=== PATIENT | female | born 1945 | race Caucasian/White ===

== ENCOUNTER 2018-06-24 18:25 | Inpatient (IN) | payer MEDICARE, BC ==
[2018-06-24] MEDS ORDERED: Sodium Chloride 0.9% 10 ML Syringe FLUSH PRN (18:30)
[2018-06-24] MEDS ORDERED: Sodium Chloride 0.9% 1,000 ML IV SCH ×2 (18:30→19:45)
--- NOTE | 2018-06-24 18:33 | EDM.PDOC ---
<Matty Sarmiento - Last Filed: 06/24/18 19:33> ED HPI GENERAL MEDICAL PROBLEM - General Chief Complaint: Trauma Stated Complaint: [facility] Time Seen by Provider: 06/24/18 18:28 Source of Information: Reports: EMS, RN Notes Reviewed - History of Present Illness INITIAL COMMENTS - FREE TEXT/NARRATIVE: 72-year-old female was brought in by EMS having been found lying on her bathroom floor. She was last known to be well 3 days ago when her brother last checked on her. She states she lost her balance, fell getting either to or from the bathroom. She feels quite strongly this happened Tuesday 3 days ago. When her brother went to check on her not having heard from her for 3 days found her lying face down on the bathroom floor unable to get up. Apparently she does have a Lifeline but "does not use it". He used to check on her daily or every other day but she protested with that so now the checks are "more random". Speech was noted to be somewhat slurred by EMS but there was no focal weakness. She had been incontinent of urine. She denies chest pain on arrival to ED, she feels mildly short of breath. She would not of had opportunity to take her medication for the last 3 days as well. She feels like her right arm is heavy and somewhat hard to move. She denies pain or injury to upper or lower extremities. - Related Data Allergies Allergy/AdvReac Type Severity Reaction Status Date / Time No Known Allergies Allergy Verified 06/24/18 19:53 Home Meds: Home Meds Albuterol [Ventolin HFA] 2 puff INH ONCALL PRN 06/24/18 [History] Omeprazole 20 mg PO DAILY 06/24/18 [History] Spironolactone 50 mg PO BID 06/24/18 [History] hydroCHLOROthiazide [Hydrochlorothiazide] 25 mg PO BID 06/24/18 [History] predniSONE [Prednisone] 5 mg PO DAILY 06/24/18 [History] ED ROS GENERAL - Review of Systems Review Of Systems: See Below Constitutional: Denies: Fever, Chills HEENT: Reports: Other. Denies: Throat Pain Respiratory: Reports: Shortness of Breath (Mouth feels very dry). Denies: Cough Cardiovascular: Denies: Chest Pain GI/Abdominal: Denies: Abdominal Pain, Nausea, Vomiting Musculoskeletal: Reports: Arm Pain (Right arm "feels heavy"). Denies: Leg Pain Skin: Reports: Bruising (There is some bruising and there are some superficial abrasions and swelling of her right head and face) Neurological: Reports: Weakness (Generalized, no focal weakness). Denies: Headache, Trouble Speaking ED EXAM, DIZZINESS - Physical Exam Exam: See Below General Appearance: Alert, Other (Mildly drowsy but very arousable, answers questions, obeys commands) Eye Exam: Bilateral Eye: PERRL, Other (Appears to have mild scleral icterus) Ears: Normal External Exam Nose: Normal Inspection Throat/Mouth: Other (Oral mucosa very dry) Head Exam: Facial Swelling (Mild right facial, forehead and periorbital swelling ) Neck: Non-Tender Respiratory/Chest: No Respiratory Distress, Lungs Clear, Normal Breath Sounds Cardiovascular: Regular Rate, Rhythm GI/Abdominal: Soft, Non-Tender Neurological: Alert, No Motor/Sensory Deficits Extremities: Pedal Edema (Marketed bilateral edema both lower legs), Redness ( Bilateral lower extremities). No: Joint Swelling, Leg Pain (No joint tenderness upper or lower extremities) Skin Exam: Dry, Pallor Course - Vital Signs Last Recorded V/S: Last Vital Signs Temp 36.1 C 06/24/18 18:39 Pulse 73 06/24/18 18:39 Resp 19 06/24/18 18:39 BP 149/81 H 06/24/18 18:39 Pulse Ox 88 L 06/24/18 18:39 - Orders/Labs/Meds Orders: Active Orders 24 hr Category Date Time Status EKG 12 Lead [EKG Documentation Completion] [RC] STAT Care 06/24/18 18:29 Active Peripheral IV Care [RC] . DIRECTED Care 06/24/18 18:30 Active Chest 1V Frontal [CR] Stat Exams 06/24/18 19:20 Taken Pelvis 1V or 2V [CR] Stat Exams 06/24/18 19:19 Taken CULTURE URINE [RM] Stat Lab 06/24/18 20:05 Received Lactated Ringers [Ringers, Lactated] 1,000 ml Med 06/24/18 21:45 Active IV ASDIRECTED Sodium Chloride 0.9% [Normal Saline] 1,000 ml Med 06/24/18 18:30 Active IV ONETIME Sodium Chloride 0.9% [Normal Saline] 1,000 ml Med 06/24/18 19:45 Active IV ONETIME Sodium Chloride 0.9% [Saline Flush] Med 06/24/18 18:30 Active 10 ml FLUSH ASDIRECTED PRN Peripheral IV Insertion Adult [OM.PC] Stat Oth 06/24/18 18:29 Ordered Medication Orders Sodium Chloride (Normal Saline) 1,000 mls @ 999 mls/hr IV ONETIME TEODORO Last Admin: 06/24/18 18:42 Dose: 999 mls/hr Sodium Chloride (Normal Saline) 1,000 mls @ 999 mls/hr IV ONETIME TEODORO Last Admin: 06/24/18 19:48 Dose: 999 mls/hr Lactated Ringer's (Ringers, Lactated) 1,000 mls @ 250 mls/hr IV ASDIRECTED TEODORO Last Admin: 06/24/18 21:50 Dose: 250 mls/hr Sodium Chloride (Saline Flush) 10 ml FLUSH ASDIRECTED PRN PRN Reason: Keep Vein Open Last Admin: 06/24/18 18:43 Dose: 10 ml Labs: Laboratory Tests 06/24/18 06/24/18 06/24/18 Range/Units 18:50 18:50 18:50 WBC 7.18 (3.98-10.04) K/mm3 RBC 2.24 L (3.98-5.22) M/mm3 Hgb 9.0 L (11.2-15.7) gm/L Hct 27.2 L (34.1-44.9) % MCV 121.4 H (79.4-94.8) fl MCH 40.2 H (25.6-32.2) pg MCHC 33.1 (32.2-35.5) g/dl RDW Std Deviation 83.1 H (36.4-46.3) fL Plt Count 173 L (182-369) K/mm3 MPV 10.1 (9.4-12.3) fl Neutrophils % (Manual) 80 H (40-60) % Band Neutrophils % 1 (0-10) % Lymphocytes % (Manual) 8 L (20-40) % Atypical Lymphs % 0 % Monocytes % (Manual) 7 (2-10) % Eosinophils % (Manual) 4 (0.7-5.8) % Basophils % (Manual) 0 L (0.1-1.2) Platelet Estimate Adequate Poikilocytosis 1+ slight Anisocytosis 2+ moderate Macrocytosis 2+ moderate Ovalocytes 1+ slight Sodium 135 L (136-145) mEq/L Potassium 3.9 (3.5-5.1) mEq/L Chloride 102 (98-107) mEq/L Carbon Dioxide 25 (21-32) mEq/L Anion Gap 11.9 (5-15) BUN 52 H (7-18) mg/dL Creatinine 2.8 H (0.55-1.02) mg/dL Est Cr Clr Drug Dosing 16.58 mL/min Estimated GFR (MDRD) 17 (>60) mL/min BUN/Creatinine Ratio 18.6 H (14-18) Glucose 111 (83-115) mg/dL Lactic Acid 2.8 H (0.4-2.0) mmol/L Calcium 8.2 L (8.5-10.1) mg/dL Magnesium (1.8-2.4) mg/dl Total Bilirubin 5.6 H (0.2-1.0) mg/dL AST 53 H (15-37) U/L ALT 17 (14-59) U/L Alkaline Phosphatase 95 (46-116) U/L Ammonia (11-32) umol/L Creatine Kinase 111 (26-192) U/L Troponin I < 0.017 (0.00-0.056) ng/mL C-Reactive Protein 11.6 H* (<1.0) mg/dL Total Protein 5.9 L (6.4-8.2) g/dl Albumin 1.6 L (3.4-5.0) g/dl Globulin 4.3 gm/dL Albumin/Globulin Ratio 0.4 L (1-2) Urine Color (Yellow) Urine Appearance (Clear) Urine pH (5.0-8.0) Ur Specific [place] (1.005-1.030) Urine Protein (Negative) Urine Glucose (UA) (Negative) Urine Ketones (Negative) Urine Occult Blood (Negative) Urine Nitrite (Negative) Urine Bilirubin (Negative) Urine Urobilinogen (0.2-1.0) Ur Leukocyte Esterase (Negative) Urine RBC (0-5) /hpf Urine WBC (0-5) /hpf Ur Epithelial Cells Ur Squamous Epith Cells (0-5) /hpf Urine Bacteria (FEW) /hpf Hyaline Casts (0-5) /lpf Urine Mucus (FEW) /hpf 06/24/18 06/24/18 06/24/18 Range/Units 18:50 20:05 23:30 WBC (3.98-10.04) K/mm3 RBC (3.98-5.22) M/mm3 Hgb (11.2-15.7) gm/L Hct (34.1-44.9) % MCV (79.4-94.8) fl MCH (25.6-32.2) pg MCHC (32.2-35.5) g/dl RDW Std Deviation (36.4-46.3) fL Plt Count (182-369) K/mm3 MPV (9.4-12.3) fl Neutrophils % (Manual) (40-60) % Band Neutrophils % (0-10) % Lymphocytes % (Manual) (20-40) % Atypical Lymphs % % Monocytes % (Manual) (2-10) % Eosinophils % (Manual) (0.7-5.8) % Basophils % (Manual) (0.1-1.2) Platelet Estimate Poikilocytosis Anisocytosis Macrocytosis Ovalocytes Sodium (136-145) mEq/L Potassium (3.5-5.1) mEq/L Chloride (98-107) mEq/L Carbon Dioxide (21-32) mEq/L Anion Gap (5-15) BUN (7-18) mg/dL Creatinine (0.55-1.02) mg/dL Est Cr Clr Drug Dosing mL/min Estimated GFR (MDRD) (>60) mL/min BUN/Creatinine Ratio (14-18) Glucose (83-115) mg/dL Lactic Acid (0.4-2.0) mmol/L Calcium (8.5-10.1) mg/dL Magnesium 1.7 L (1.8-2.4) mg/dl Total Bilirubin (0.2-1.0) mg/dL AST (15-37) U/L ALT (14-59) U/L Alkaline Phosphatase (46-116) U/L Ammonia 21 (11-32) umol/L Creatine Kinase (26-192) U/L Troponin I (0.00-0.056) ng/mL C-Reactive Protein (<1.0) mg/dL Total Protein (6.4-8.2) g/dl Albumin (3.4-5.0) g/dl Globulin gm/dL Albumin/Globulin Ratio (1-2) Urine Color Brown H (Yellow) Urine Appearance Slt cloudy H (Clear) Urine pH 5.0 (5.0-8.0) Ur Specific [place] > or = 1.030 (1.005-1.030) Urine Protein 2+ H (Negative) Urine Glucose (UA) Negative (Negative) Urine Ketones Trace H (Negative) Urine Occult Blood 2+ H (Negative) Urine Nitrite Positive H (Negative) Urine Bilirubin 2+ H (Negative) Urine Urobilinogen 1.0 (0.2-1.0) Ur Leukocyte Esterase Negative (Negative) Urine RBC 0-5 (0-5) /hpf Urine WBC 0-5 (0-5) /hpf Ur Epithelial Cells Not Reportable Ur Squamous Epith Cells 0-5 (0-5) /hpf Urine Bacteria Few (FEW) /hpf Hyaline Casts 5-10 H (0-5) /lpf Urine Mucus Few (FEW) /hpf Meds: Medications Generic Name Dose Route Start Last Admin Trade Name Freq PRN Reason Stop Dose Admin Sodium Chloride 1,000 mls @ 999 mls/hr 06/24/18 18:30 06/24/18 18:42 Normal Saline IV 999 mls/hr ONETIME TEODORO Administration Sodium Chloride 1,000 mls @ 999 mls/hr 06/24/18 19:45 06/24/18 19:48 Normal Saline IV 999 mls/hr ONETIME TEODORO Administration Lactated Ringer's 1,000 mls @ 250 mls/hr 06/24/18 21:45 06/24/18 21:50 Ringers, Lactated IV 250 mls/hr ASDIRECTED TEODORO Administration Sodium Chloride 10 ml 06/24/18 18:30 06/24/18 18:43 Saline Flush FLUSH 10 ml ASDIRECTED PRN Administration Keep Vein Open - Re-Assessments/Exams Free Text/Narrative Re-Assessment/Exam: 06/24/18 19:30. change of shift, labs, head Ct looks good. X rays pending. Have ordered initial 1 liter fluid bolus, will get a 2nd liter ordered to start as soon as the first is finished. Departure - Departure Disposition: Admitted As Inpatient 67 Clinical Impression: Fall at home, Alteration in self-care ability, Acute renal failure - Discharge Information Referrals: PCP,None [Primary Care Provider] - - My Orders Last 24 Hours: My Active Orders 06/24/18 20:05 CULTURE URINE [RM] Stat 06/24/18 21:45 Lactated Ringers [Ringers, Lactated] 1,000 ml IV ASDIRECTED - Assessment/Plan Last 24 Hours: My Active Orders 06/24/18 20:05 CULTURE URINE [RM] Stat 06/24/18 21:45 Lactated Ringers [Ringers, Lactated] 1,000 ml IV ASDIRECTED <Kadeem Coleman - Last Filed: 06/25/18 00:42> Past Medical History Cardiovascular History: Reports: Hypertension Respiratory History: Reports: Asthma (suspected, never tested) Gastrointestinal History: Reports: Cirrhosis Psychiatric History: Reports: Depression (untreated) Endocrine/Metabolic History: Reports: Obesity/BMI 30+ - Past Surgical History HEENT Surgical History: Reports: Adenoidectomy, Tonsillectomy Female Surgical History: Reports: Hysterectomy (complete), Salpingo- Oophorectomy (bilateral) Social & Family History - Tobacco Use Smoking Status *Q: Former Smoker Years of Tobacco use: 30 Packs/Tins Daily: 2 Month/Year Tobacco Last Used: Quit 1999 - Alcohol Use Alcohol Use History: No - Recreational Drug Use Recreational Drug Use: No - Living Situation & Occupation Living situation: Reports: Single, Alone Occupation: Unemployed EKG INTERPRETATION EKG Date: 06/24/18 Time: 18:41 Rhythm: NSR Rate (Beats/Min): 72 [place]: Normal P-Wave: Present QRS: Normal (Early transition) ST-T: Normal QT: Normal Comparison: NA - No Prior EKG Course - Re-Assessments/Exams Free Text/Narrative Re-Assessment/Exam: 06/24/18 20:30 CT of the head without contrast is read by Dr. Marvin as: 1. Slight senescent change as noted above. No acute intracranial abnormality is appreciated. Portable chest radiograph reviewed. There is likely cardiomegaly. No pulmonary vascular congestion. No pleural effusions, however, there is fluid seen in the horizontal fissure. This could be due to atelectasis. No focal infiltrate. No pneumothorax. Formal read per the Radiologist pending. Single view radiographs of the pelvis appears to be grossly normal. No fracture or dislocation identified. Formal read per the Radiologist pending. 06/24/18 20:59 The patient's CBC is remarkable for a H/H of 9.0/27.2, but is otherwise unremarkable. There are no prior labs to compare. The patient's CMP is remarkable for a BUN/Cr of 52/2.8. No prior labs to determine if this is acute or chronic. The remainder of her CMP is unremarkable. The patient's magnesium level is slightly depressed at 1.7. The patient's lactic acid level is elevated at 2.8, however, the patient's bicarbonate is normal at 25, indicating that this is hyper like team you, not lactic acidosis. The patient's CRP is elevated at 11.6. The patient's CPK is within normal limits at 111. She does not have rhabdomyolysis. The patient's troponin is undetectable he low. The patient's urinalysis is remarkable for nitrite positive and few bacteria, but leukocyte esterase negative and no WBCs and no bacteria. I have ordered a urine culture, but empiric antibiotics are not indicated. I'm going to recommend admission to the hospital for IV fluid and penitentiary placement. 06/24/18 23:20 The patient is quite confused and has difficulty giving me her past medical history, however, she mentioned that she has a history of non-alcoholic cirrhosis, diagnosed around 1999. Because the patient has not taken any of her medications over the past few days, there is the possibility that the patient's confusion could be due to hepatic encephalopathy, therefore I have ordered an ammonia level. 06/25/18 00:33 The patient's ammonia level is 21 = not significantly elevated. 06/25/18 00:[address] Montanez at 00:34. She excepted the patient for full admission to the Med/Surg unit. Departure - Departure Time of Disposition: 00:38 Condition: Fair - Discharge Information *PRESCRIPTION DRUG MONITORING PROGRAM REVIEWED*: Not Applicable *COPY OF PRESCRIPTION DRUG MONITORING REPORT IN PATIENT IVETH: Not Applicable
--- NOTE | 2018-06-24 19:26 | CT ---
Head CT Technique: Multiple axial sections through the brain were obtained. Intravenous contrast was not utilized. Comparison: No previous intracranial imaging is available. Findings: Ventricles along with basal cisterns and sulci over convexities are mildly prominent. No abnormal parenchymal densities are seen. No evidence of intracranial hemorrhage. No midline shift or mass effect is seen. Bone window settings were reviewed which shows no acute calvarial abnormality. Small bony exostosis is incidentally noted off the inner table of the skull within the right frontal region. Visualized sinuses are clear. Impression: 1. Slight senescent change as noted above. No acute intracranial abnormality is appreciated. Diagnostic code #2
[2018-06-24] MEDS ORDERED: Lactated Ringers 1,000 ML IV SCH (21:45)
[2018-06-25] MEDS ORDERED: Lactated Ringers 1,000 ML IV SCH (02:45)
[2018-06-25] MEDS ORDERED: Enoxaparin 30 MG/0.3 ML Syringe SUBCUT ONE (03:00)
--- NOTE | 2018-06-25 09:26 | PCM.HP ---
H&P History of Present Illness - General Date of Service: 06/25/18 Admit Problem/Dx: Admission Diagnosis/Problem Admission Diagnosis/Problem Fall in home Source of Information: Patient, Provider - History of Present Illness Initial Comments - Free Text/Narative: 72 year old female with PMH of liver disease, possibly hypertension presented as a possible CVA. The patient moved to [place] from [place] for family support. She reports a history of autoimmune hepatitis and stated that her provider was Dr. Harvey Garcia, a GI physician. She was formerly seen by Dr. Almas Back who was her PCP, he has retired. Lastly she has been seen in [place] by a supervisor hand silvering. The patient reported that she fell and could not get up. There is a life alert that was not used. Her brother checked on her, and notified EMS when she was apparently found on the floor in the bathroom. The patient believes that she was on the floor for three days. She denies chest pain, shortness of breath, palpitations; she stated that she got on the floor because she could not get off of the commode. There was no LOC. The patient was incontinent of urine. The patient reports multiple meds used for liver disease, this will be clarified. She is a full code. There is no current PCP in [place] or [place]. Onset of Symptoms: Reports: Unknown/Unsure Symptom Onset Date: 06/21/18 Duration of Symptoms: Reports: Day(s):, Getting Worse Location: Reports: Generalized Severity: Moderate Improves with: Reports: Medication Worsens with: Reports: None Context: Reports: Other (use of commode) Associated Symptoms: Reports: Loss of Appetite, Weakness - Related Data Allergies/Adverse Reactions: Allergies Allergy/AdvReac Type Severity Reaction Status Date / Time No Known Allergies Allergy Verified 06/25/18 10:48 Home Medications: Home Meds Albuterol [Ventolin HFA] 2 puff INH ONCALL PRN 06/24/18 [History] Omeprazole 20 mg PO DAILY 06/24/18 [History] Spironolactone 50 mg PO BID 06/24/18 [History] hydroCHLOROthiazide [Hydrochlorothiazide] 25 mg PO BID 06/24/18 [History] predniSONE [Prednisone] 5 mg PO DAILY 06/24/18 [History] Diltiazem HCl [Cardizem] 5 mg PO DAILY 06/25/18 [History] Omeprazole Magnesium [Prilosec Otc] 20 mg PO DAILY 06/25/18 [History] Past Medical History HEENT History: Reports: Impaired Vision Cardiovascular History: Reports: Hypertension Respiratory History: Reports: Asthma (suspected, never tested) Gastrointestinal History: Reports: Cirrhosis Psychiatric History: Reports: Depression (untreated) Endocrine/Metabolic History: Reports: Obesity/BMI 30+ - Past Surgical History HEENT Surgical History: Reports: Adenoidectomy, Tonsillectomy Female Surgical History: Reports: Hysterectomy (complete), Salpingo- Oophorectomy (bilateral) Social & Family History - Tobacco Use Smoking Status *Q: Former Smoker Years of Tobacco use: 30 Packs/Tins Daily: 2 Used Tobacco, but Quit: Yes Month/Year Tobacco Last Used: Quit 1999 - Caffeine Use Caffeine Use: Reports: Coffee - Recreational Drug Use Recreational Drug Use: No - Living Situation & Occupation Living situation: Reports: Single, Alone Occupation: Unemployed H&P Review of Systems - Review of Systems: Review Of Systems: See Below General: Reports: Malaise, Weakness HEENT: Reports: No Symptoms Pulmonary: Reports: No Symptoms Cardiovascular: Reports: No Symptoms Gastrointestinal: Reports: No Symptoms Genitourinary: Reports: No Symptoms Musculoskeletal: Reports: No Symptoms Skin: Reports: No Symptoms Psychiatric: Reports: Confusion Neurological: Reports: Difficulty Walking Immunologic: Reports: No Symptoms Exam - Exam Exam: See Below - Vital Signs Vital Signs: Last Vital Signs Temp 36.1 C 06/24/18 18:39 Pulse 73 06/24/18 18:39 Resp 19 06/24/18 18:39 BP 149/81 H 06/24/18 18:39 Pulse Ox 88 L 06/24/18 18:39 Weight: 131.542 kg - Exam Quality Assessment: Supplemental Oxygen, DVT Prophylaxis HEENT: EOMI, Normal Nasal Septum, Pupils Equal, Pupils Reactive Neck: Trachea Midline Lungs: Normal Respiratory Effort Cardiovascular: Regular Rate, Regular Rhythm GI/Abdominal Exam: Normal Bowel Sounds, Soft, Non-Tender, No Distention (Female) Exam: Deferred Rectal (Female) Exam: Deferred Back Exam: Normal Inspection Extremities: Normal Inspection, Pedal Edema, Slow Capillary Refill Skin: Other (discolored yellowish brown with abrasions.) Neurological: Cranial Nerves Intact Neuro Extensive - Mental Status: Alert Neuro Extensive - Motor, Sensory, Reflexes: CN II-XII Intact Psychiatric: Alert - Patient Data Lab Results Last 24 hrs: Laboratory Results - last 24 hr 06/24/18 06/24/18 06/24/18 Range/Units 18:50 18:50 18:50 WBC 7.18 (3.98-10.04) K/mm3 RBC 2.24 L (3.98-5.22) M/mm3 Hgb 9.0 L (11.2-15.7) gm/L Hct 27.2 L (34.1-44.9) % MCV 121.4 H (79.4-94.8) fl MCH 40.2 H (25.6-32.2) pg MCHC 33.1 (32.2-35.5) g/dl RDW Std Deviation 83.1 H (36.4-46.3) fL Plt Count 173 L (182-369) K/mm3 MPV 10.1 (9.4-12.3) fl Neutrophils % (Manual) 80 H (40-60) % Band Neutrophils % 1 (0-10) % Lymphocytes % (Manual) 8 L (20-40) % Atypical Lymphs % 0 % Monocytes % (Manual) 7 (2-10) % Eosinophils % (Manual) 4 (0.7-5.8) % Basophils % (Manual) 0 L (0.1-1.2) Platelet Estimate Adequate Polychromasia Hypochromasia Poikilocytosis 1+ slight Anisocytosis 2+ moderate Microcytosis Macrocytosis 2+ moderate Ovalocytes 1+ slight RBC Morph Comment Sodium 135 L (136-145) mEq/L Potassium 3.9 (3.5-5.1) mEq/L Chloride 102 (98-107) mEq/L Carbon Dioxide 25 (21-32) mEq/L Anion Gap 11.9 (5-15) BUN 52 H (7-18) mg/dL Creatinine 2.8 H (0.55-1.02) mg/dL Est Cr Clr Drug Dosing 16.58 mL/min Estimated GFR (MDRD) 17 (>60) mL/min BUN/Creatinine Ratio 18.6 H (14-18) Glucose 111 (83-115) mg/dL Lactic Acid 2.8 H (0.4-2.0) mmol/L Calcium 8.2 L (8.5-10.1) mg/dL Magnesium (1.8-2.4) mg/dl Total Bilirubin 5.6 H (0.2-1.0) mg/dL AST 53 H (15-37) U/L ALT 17 (14-59) U/L Alkaline Phosphatase 95 (46-116) U/L Ammonia (11-32) umol/L Creatine Kinase 111 (26-192) U/L Troponin I < 0.017 (0.00-0.056) ng/mL C-Reactive Protein 11.6 H* (<1.0) mg/dL Total Protein 5.9 L (6.4-8.2) g/dl Albumin 1.6 L (3.4-5.0) g/dl Globulin 4.3 gm/dL Albumin/Globulin Ratio 0.4 L (1-2) Urine Color (Yellow) Urine Appearance (Clear) Urine pH (5.0-8.0) Ur Specific [place] (1.005-1.030) Urine Protein (Negative) Urine Glucose (UA) (Negative) Urine Ketones (Negative) Urine Occult Blood (Negative) Urine Nitrite (Negative) Urine Bilirubin (Negative) Urine Urobilinogen (0.2-1.0) Ur Leukocyte Esterase (Negative) Urine RBC (0-5) /hpf Urine WBC (0-5) /hpf Ur Epithelial Cells Ur Squamous Epith Cells (0-5) /hpf Urine Bacteria (FEW) /hpf Hyaline Casts (0-5) /lpf Urine Mucus (FEW) /hpf Mycoplasma pneumon IgM (NEGATIVE) 06/24/18 06/24/18 06/24/18 Range/Units 18:50 18:50 20:05 WBC (3.98-10.04) K/mm3 RBC (3.98-5.22) M/mm3 Hgb (11.2-15.7) gm/L Hct (34.1-44.9) % MCV (79.4-94.8) fl MCH (25.6-32.2) pg MCHC (32.2-35.5) g/dl RDW Std Deviation (36.4-46.3) fL Plt Count (182-369) K/mm3 MPV (9.4-12.3) fl Neutrophils % (Manual) (40-60) % Band Neutrophils % (0-10) % Lymphocytes % (Manual) (20-40) % Atypical Lymphs % % Monocytes % (Manual) (2-10) % Eosinophils % (Manual) (0.7-5.8) % Basophils % (Manual) (0.1-1.2) Platelet Estimate Polychromasia Hypochromasia Poikilocytosis Anisocytosis Microcytosis Macrocytosis Ovalocytes RBC Morph Comment Sodium (136-145) mEq/L Potassium (3.5-5.1) mEq/L Chloride (98-107) mEq/L Carbon Dioxide (21-32) mEq/L Anion Gap (5-15) BUN (7-18) mg/dL Creatinine (0.55-1.02) mg/dL Est Cr Clr Drug Dosing mL/min Estimated GFR (MDRD) (>60) mL/min BUN/Creatinine Ratio (14-18) Glucose (83-115) mg/dL Lactic Acid (0.4-2.0) mmol/L Calcium (8.5-10.1) mg/dL Magnesium 1.7 L (1.8-2.4) mg/dl Total Bilirubin (0.2-1.0) mg/dL AST (15-37) U/L ALT (14-59) U/L Alkaline Phosphatase (46-116) U/L Ammonia (11-32) umol/L Creatine Kinase (26-192) U/L Troponin I (0.00-0.056) ng/mL C-Reactive Protein (<1.0) mg/dL Total Protein (6.4-8.2) g/dl Albumin (3.4-5.0) g/dl Globulin gm/dL Albumin/Globulin Ratio (1-2) Urine Color Brown H (Yellow) Urine Appearance Slt cloudy H (Clear) Urine pH 5.0 (5.0-8.0) Ur Specific [place] > or = 1.030 (1.005-1.030) Urine Protein 2+ H (Negative) Urine Glucose (UA) Negative (Negative) Urine Ketones Trace H (Negative) Urine Occult Blood 2+ H (Negative) Urine Nitrite Positive H (Negative) Urine Bilirubin 2+ H (Negative) Urine Urobilinogen 1.0 (0.2-1.0) Ur Leukocyte Esterase Negative (Negative) Urine RBC 0-5 (0-5) /hpf Urine WBC 0-5 (0-5) /hpf Ur Epithelial Cells Not Reportable Ur Squamous Epith Cells 0-5 (0-5) /hpf Urine Bacteria Few (FEW) /hpf Hyaline Casts 5-10 H (0-5) /lpf Urine Mucus Few (FEW) /hpf Mycoplasma pneumon IgM Negative (NEGATIVE) 06/24/18 06/25/18 06/25/18 Range/Units 23:30 04:45 04:45 WBC 5.49 (3.98-10.04) K/mm3 RBC 1.97 L (3.98-5.22) M/mm3 Hgb 7.8 L (11.2-15.7) gm/L Hct 24.0 L (34.1-44.9) % MCV 121.8 H (79.4-94.8) fl MCH 39.6 H (25.6-32.2) pg MCHC 32.5 (32.2-35.5) g/dl RDW Std Deviation 84.1 H (36.4-46.3) fL Plt Count 124 L (182-369) K/mm3 MPV 9.6 (9.4-12.3) fl Neutrophils % (Manual) 76 H (40-60) % Band Neutrophils % 4 (0-10) % Lymphocytes % (Manual) 8 L (20-40) % Atypical Lymphs % 0 % Monocytes % (Manual) 10 (2-10) % Eosinophils % (Manual) 2 (0.7-5.8) % Basophils % (Manual) 0 L (0.1-1.2) Platelet Estimate Decreased Polychromasia Occasional Hypochromasia 1+ slight Poikilocytosis Anisocytosis 2+ Microcytosis 2+ moderate Macrocytosis 1+ slight Ovalocytes RBC Morph Comment Not Reportable Sodium 136 (136-145) mEq/L Potassium 3.4 L (3.5-5.1) mEq/L Chloride 102 (98-107) mEq/L Carbon Dioxide 25 (21-32) mEq/L Anion Gap 12.4 (5-15) BUN 54 H (7-18) mg/dL Creatinine 2.6 H (0.55-1.02) mg/dL Est Cr Clr Drug Dosing 17.86 mL/min Estimated GFR (MDRD) 18 (>60) mL/min BUN/Creatinine Ratio 20.8 H (14-18) Glucose 82 L (83-115) mg/dL Lactic Acid (0.4-2.0) mmol/L Calcium 7.6 L (8.5-10.1) mg/dL Magnesium 1.6 L (1.8-2.4) mg/dl Total Bilirubin (0.2-1.0) mg/dL AST (15-37) U/L ALT (14-59) U/L Alkaline Phosphatase (46-116) U/L Ammonia 21 (11-32) umol/L Creatine Kinase (26-192) U/L Troponin I 0.020 (0.00-0.056) ng/mL C-Reactive Protein (<1.0) mg/dL Total Protein (6.4-8.2) g/dl Albumin (3.4-5.0) g/dl Globulin gm/dL Albumin/Globulin Ratio (1-2) Urine Color (Yellow) Urine Appearance (Clear) Urine pH (5.0-8.0) Ur Specific [place] (1.005-1.030) Urine Protein (Negative) Urine Glucose (UA) (Negative) Urine Ketones (Negative) Urine Occult Blood (Negative) Urine Nitrite (Negative) Urine Bilirubin (Negative) Urine Urobilinogen (0.2-1.0) Ur Leukocyte Esterase (Negative) Urine RBC (0-5) /hpf Urine WBC (0-5) /hpf Ur Epithelial Cells Ur Squamous Epith Cells (0-5) /hpf Urine Bacteria (FEW) /hpf Hyaline Casts (0-5) /lpf Urine Mucus (FEW) /hpf Mycoplasma pneumon IgM (NEGATIVE) 06/25/18 Range/Units 08:20 WBC (3.98-10.04) K/mm3 RBC (3.98-5.22) M/mm3 Hgb (11.2-15.7) gm/L Hct (34.1-44.9) % MCV (79.4-94.8) fl MCH (25.6-32.2) pg MCHC (32.2-35.5) g/dl RDW Std Deviation (36.4-46.3) fL Plt Count (182-369) K/mm3 MPV (9.4-12.3) fl Neutrophils % (Manual) (40-60) % Band Neutrophils % (0-10) % Lymphocytes % (Manual) (20-40) % Atypical Lymphs % % Monocytes % (Manual) (2-10) % Eosinophils % (Manual) (0.7-5.8) % Basophils % (Manual) (0.1-1.2) Platelet Estimate Polychromasia Hypochromasia Poikilocytosis Anisocytosis Microcytosis Macrocytosis Ovalocytes RBC Morph Comment Sodium (136-145) mEq/L Potassium (3.5-5.1) mEq/L Chloride (98-107) mEq/L Carbon Dioxide (21-32) mEq/L Anion Gap (5-15) BUN (7-18) mg/dL Creatinine (0.55-1.02) mg/dL Est Cr Clr Drug Dosing mL/min Estimated GFR (MDRD) (>60) mL/min BUN/Creatinine Ratio (14-18) Glucose (83-115) mg/dL Lactic Acid 2.3 H (0.4-2.0) mmol/L Calcium (8.5-10.1) mg/dL Magnesium (1.8-2.4) mg/dl Total Bilirubin (0.2-1.0) mg/dL AST (15-37) U/L ALT (14-59) U/L Alkaline Phosphatase (46-116) U/L Ammonia (11-32) umol/L Creatine Kinase (26-192) U/L Troponin I (0.00-0.056) ng/mL C-Reactive Protein (<1.0) mg/dL Total Protein (6.4-8.2) g/dl Albumin (3.4-5.0) g/dl Globulin gm/dL Albumin/Globulin Ratio (1-2) Urine Color (Yellow) Urine Appearance (Clear) Urine pH (5.0-8.0) Ur Specific [place] (1.005-1.030) Urine Protein (Negative) Urine Glucose (UA) (Negative) Urine Ketones (Negative) Urine Occult Blood (Negative) Urine Nitrite (Negative) Urine Bilirubin (Negative) Urine Urobilinogen (0.2-1.0) Ur Leukocyte Esterase (Negative) Urine RBC (0-5) /hpf Urine WBC (0-5) /hpf Ur Epithelial Cells Ur Squamous Epith Cells (0-5) /hpf Urine Bacteria (FEW) /hpf Hyaline Casts (0-5) /lpf Urine Mucus (FEW) /hpf Mycoplasma pneumon IgM (NEGATIVE) Result Diagrams: 06/25/18 04:45 06/25/18 04:45 Calixto Results Last 24 hrs: Microbiology 06/24/18 20:05 Urine Culture - Preliminary Urine, Quick Cath (In-Out) NO GROWTH AFTER 1 DAY 06/25/18 04:00 Influenza Type A Antigen Screen - Final Nasal, Unspecified NEGATIVE INFLUENZA A VIRUS AG Influenza Type B Antigen Screen - Final NEGATIVE INFLUENZA B VIRUS AG - Problem List (1) Hyperbilirubinemia SNOMED Code(s): 79450971 ICD Code: E80.6 - OTHER DISORDERS OF BILIRUBIN METABOLISM Status: Acute Current Visit: Yes (2) Acute renal failure SNOMED Code(s): 22942445 ICD Code: N17.9 - ACUTE KIDNEY FAILURE, UNSPECIFIED Status: Acute Current Visit: Yes (3) Alteration in self-care ability SNOMED Code(s): 200042681 ICD Code: R53.81 - OTHER MALAISE Status: Acute Current Visit: Yes (4) Fall at home SNOMED Code(s): 17152889 ICD Code: W19.XXXA - UNSPECIFIED FALL, INITIAL ENCOUNTER; Y92.009 - UNSP PLACE [facility] Status: Acute Current Visit: Yes (5) Urinary tract infection SNOMED Code(s): 65177720 ICD Code: N39.0 - URINARY TRACT INFECTION, SITE NOT SPECIFIED Status: Acute Current Visit: Yes Problem List Initiated/Reviewed/Updated: Yes Orders Last 24hrs: Active Orders 24 hr Category Date Time Status Patient Status [ADT] Routine ADT 06/25/18 00:53 Active Bedrest Bedside Commode [RC] ASDIRECTED Care 06/25/18 02:42 Active Full Liquid Diet [DIET] Diet 06/25/18 Breakfast Active Chest 1V Frontal [CR] Stat Exams 06/24/18 19:20 Taken Pelvis 1V or 2V [CR] Stat Exams 06/24/18 19:19 Taken CORTISOL [REF] Routine Lab 06/25/18 04:45 Received CULTURE URINE [RM] Stat Lab 06/24/18 20:05 Results RESPIRATORY PANEL Routine Lab 06/25/18 03:44 Received Enoxaparin [Lovenox] Med 06/26/18 09:00 Active 30 mg SUBCUT DAILY Lactated Ringers [Ringers, Lactated] 1,000 ml Med 06/25/18 02:45 Active IV ASDIRECTED Sodium Chloride 0.9% [Saline Flush] Med 06/24/18 18:30 Active 10 ml FLUSH ASDIRECTED PRN Peripheral IV Insertion Adult [OM.PC] Stat Oth 06/24/18 18:29 Ordered Code Status [Resuscitation Status] Routine Resus Stat 06/25/18 02:41 Ordered Medication Orders Enoxaparin Sodium (Lovenox) 30 mg SUBCUT DAILY COUNTS INCLUDE 234 BEDS AT THE [facility] Lactated Ringer's (Ringers, Lactated) 1,000 mls @ 125 mls/hr IV ASDIRECTED TEODORO Last Admin: 06/25/18 04:47 Dose: 125 mls/hr Sodium Chloride (Saline Flush) 10 ml FLUSH ASDIRECTED PRN PRN Reason: Keep Vein Open Last Admin: 06/24/18 18:43 Dose: 10 ml Assessment/Plan Comment:: Impression: Hyperbilirubinemia History of liver disease, autoimmune by self report History of immunosuppressants, clarify meds AUTI ARF/dehydration Failure of self care/self neglect CVA/TIA, doubt Query CHF, diastolic Plan: IVF Home meds after clarified Daily labs Abd US, complete Liver panel, TSH, Cortisol Stress steroid Droplet isolation Resp panel Consult PT/OT/CM DVT/GI prophylaxis
[2018-06-25] MEDS ORDERED: Sodium Chloride 0.9% 1,000 ML IV SCH (10:30)
[2018-06-25] MEDS: cefTRIAXone 2 GM in Sodium Chloride 0.9% 100 ML IV SCH (10:53)
--- NOTE | 2018-06-25 13:07 | CR ---
Chest: Portable view of the chest was obtained. Comparison: No prior chest x-ray is available. Linear densities within the right mid chest are seen. These either represent atelectasis or areas of scarring. Lungs are otherwise clear. Heart is at the upper limits of normal. Tortuous thoracic aorta is seen. Scattered degenerative endplate spurring is noted within the spine. Degenerative change is noted within the right shoulder. Impression: 1. Atelectasis or scarring within the right mid lung. 2. Other incidental findings. Nothing acute is otherwise seen. Diagnostic code #2
--- NOTE | 2018-06-25 13:07 | CR ---
Pelvis: AP view of the pelvis was obtained. Calcification is seen within the pelvis most likely represent calcified uterine fibroid. No discrete fracture or other abnormality is appreciated. Impression: 1. Incidental finding. Nothing acute is definitely appreciated on AP pelvis study. Diagnostic code #2
[2018-06-25] MEDS ORDERED: Hydrocortisone Sodium Succinate 100 MG/2 ML SDV IVPUSH SCH ×2 (14:00)
[2018-06-25] MEDS ORDERED: Metoprolol Tartrate 5 MG/5 ML SDV IVPUSH PRN (17:16)
[2018-06-25] MEDS ORDERED: Potassium Chloride 20 MEQ Tab.ER PO ONE (17:19)
[2018-06-25] MEDS ORDERED: Magnesium Sulfate/Water 4 GM in Premix Bag 1 BAG IV ONE (17:19)
[2018-06-25] MEDS ORDERED: Sodium Chloride 0.9% 250 ML IV SCH (17:30)
[2018-06-25] MEDS ORDERED: Furosemide 40 MG/4 ML VIAL IVPUSH ONE ×2 (18:00→23:00)
[2018-06-25] MEDS: Spironolactone 25 MG Tab PO SCH (21:08)
[2018-06-26] MEDS: Pantoprazole 40 MG Tab.CR PO SCH (06:03)
[2018-06-26] MEDS ORDERED: Pantoprazole 40 MG Tab.CR PO SCH (07:00)
[2018-06-26] MEDS ORDERED: predniSONE 5 MG Tab PO SCH (09:00)
[2018-06-26] MEDS ORDERED: DILTIAZEM HCL PO SCH (09:00)
[2018-06-26] MEDS: Spironolactone 25 MG Tab PO SCH ×2 (11:23→20:47)
[2018-06-26] MEDS: cefTRIAXone 2 GM in Sodium Chloride 0.9% 100 ML IV SCH (11:24)
[2018-06-26] MEDS: Hydrocortisone Sodium Succinate 100 MG/2 ML SDV IVPUSH SCH (11:24)
[2018-06-26] MEDS: Enoxaparin 30 MG/0.3 ML Syringe SUBCUT SCH (11:24)
--- NOTE | 2018-06-26 12:23 | US ---
Abdominal ultrasound: Multiple real-time images were obtained. Comparison: No prior ultrasound exam. Technologist's note: Technically challenging due to patient's body habitus and inability to cooperate Ascites is seen within the abdomen. Liver appears cirrhotic and is small in size and echogenic. Pancreas is incompletely seen. Visualized portions of the pancreas are unremarkable. Aorta shows no discrete aneurysm. Gallbladder contains no shadowing gallstones. Gallbladder wall is thickened which can be seen with ascites. No biliary duct dilatation is seen. Portal vein appears to have hepatopedal flow. Kidneys show no hydronephrosis or mass. Right kidney length is 10.3 cm and left kidney length is 11.4 cm. Inferior vena cava is patent. Impression: 1. Mild to moderate amount of ascites within the abdomen. 2. Cirrhotic change within the liver. 3. No additional abnormality is definitely appreciated. Diagnostic code #3
--- NOTE | 2018-06-26 14:24 | PCM.PN ---
- General Info Date of Service: 06/26/18 Functional Status: Reports: Urinating - Review of Systems General: Reports: Weakness, Fatigue HEENT: Reports: No Symptoms Pulmonary: Reports: Shortness of Breath Cardiovascular: Reports: No Symptoms, Other (LE edema with thickened skin, hairness, erythema) Gastrointestinal: Reports: No Symptoms Genitourinary: Reports: No Symptoms Musculoskeletal: Reports: No Symptoms Skin: Reports: Other (multiple skin tears and abrasions) Neurological: Reports: No Symptoms Psychiatric: Reports: No Symptoms - Patient Data Vitals - Most Recent: Last Vital Signs Temp 36.2 C 06/26/18 05:22 Pulse 70 06/26/18 05:22 Resp 20 06/26/18 05:22 BP 112/76 06/26/18 05:22 Pulse Ox 98 06/26/18 05:22 Weight - Most Recent: 131.587 kg I&O - Last 24 Hours: Intake & Output 06/25/18 06/26/18 06/26/18 22:59 06:59 14:59 Intake Total 2714 850 0 Balance 2714 850 0 Lab Results Last 24 Hours: Laboratory Results - last 24 hr 06/25/18 06/25/18 06/25/18 Range/Units 04:45 16:05 16:05 WBC (3.98-10.04) K/mm3 RBC (3.98-5.22) M/mm3 Hgb 8.0 L (11.2-15.7) gm/L Hct (34.1-44.9) % MCV (79.4-94.8) fl MCH (25.6-32.2) pg MCHC (32.2-35.5) g/dl RDW Std Deviation (36.4-46.3) fL Plt Count (182-369) K/mm3 MPV (9.4-12.3) fl Neut % (Auto) (34.0-71.1) % Lymph % (Auto) (19.3-51.7) % [place] % (Auto) (4.7-12.5) % Eos % (Auto) (0.7-5.8) Baso % (Auto) (0.1-1.2) % Neut # (Auto) (1.56-6.13) K/mm3 Lymph # (Auto) (1.18-3.74) K/mm3 [place] # (Auto) (0.24-0.36) K/mm3 Eos # (Auto) (0.04-0.36) K/mm3 Baso # (Auto) (0.01-0.08) K/mm3 Manual Slide Review Sodium (136-145) mEq/L Potassium (3.5-5.1) mEq/L Chloride (98-107) mEq/L Carbon Dioxide (21-32) mEq/L Anion Gap (5-15) BUN (7-18) mg/dL Creatinine (0.55-1.02) mg/dL Est Cr Clr Drug Dosing mL/min Estimated GFR (MDRD) (>60) mL/min BUN/Creatinine Ratio (14-18) Glucose (83-115) mg/dL Calcium (8.5-10.1) mg/dL Magnesium (1.8-2.4) mg/dl Total Bilirubin (0.2-1.0) mg/dL Direct Bilirubin (0.0-0.2) mg/dl Indirect Bilirubin AST (15-37) U/L ALT (14-59) U/L Alkaline Phosphatase (46-116) U/L Total Protein (6.4-8.2) g/dl Albumin (3.4-5.0) g/dl Globulin gm/dL Albumin/Globulin Ratio (1-2) Triglycerides (<150) mg/dL Cholesterol (<200) mg/dL LDL Cholesterol Direct (<100) mg/dL HDL Cholesterol (40-59) mg/dL TSH 3rd Generation (0.358-3.74) uIU/mL Blood Type A POSITIVE Gel Antibody Screen Negative Crossmatch See Detail See Detail 06/26/18 06/26/18 Range/Units 07:15 07:15 WBC 5.43 (3.98-10.04) K/mm3 RBC 2.86 L (3.98-5.22) M/mm3 Hgb 10.4 L (11.2-15.7) gm/L Hct 30.6 L (34.1-44.9) % MCV 107.0 H (79.4-94.8) fl MCH 36.4 H (25.6-32.2) pg MCHC 34.0 (32.2-35.5) g/dl RDW Std Deviation 103.7 H (36.4-46.3) fL Plt Count 114 L (182-369) K/mm3 MPV 10.1 (9.4-12.3) fl Neut % (Auto) 75.1 H (34.0-71.1) % Lymph % (Auto) 16.2 L (19.3-51.7) % [place] % (Auto) 7.4 (4.7-12.5) % Eos % (Auto) 0.2 L (0.7-5.8) Baso % (Auto) 0.2 (0.1-1.2) % Neut # (Auto) 4.08 (1.56-6.13) K/mm3 Lymph # (Auto) 0.88 L (1.18-3.74) K/mm3 [place] # (Auto) 0.40 H (0.24-0.36) K/mm3 Eos # (Auto) 0.01 L (0.04-0.36) K/mm3 Baso # (Auto) 0.01 (0.01-0.08) K/mm3 Manual Slide Review Abnormal smear Sodium 136 (136-145) mEq/L Potassium 4.1 (3.5-5.1) mEq/L Chloride 104 (98-107) mEq/L Carbon Dioxide 23 (21-32) mEq/L Anion Gap 13.1 (5-15) BUN 60 H (7-18) mg/dL Creatinine 2.6 H (0.55-1.02) mg/dL Est Cr Clr Drug Dosing 17.86 mL/min Estimated GFR (MDRD) 18 (>60) mL/min BUN/Creatinine Ratio 23.1 H (14-18) Glucose 127 H (83-115) mg/dL Calcium 8.2 L (8.5-10.1) mg/dL Magnesium 2.1 (1.8-2.4) mg/dl Total Bilirubin 4.6 H (0.2-1.0) mg/dL Direct Bilirubin 1.90 H (0.0-0.2) mg/dl Indirect Bilirubin 2.70 AST 50 H (15-37) U/L ALT 21 (14-59) U/L Alkaline Phosphatase 92 (46-116) U/L Total Protein 5.6 L (6.4-8.2) g/dl Albumin 1.5 L (3.4-5.0) g/dl Globulin 4.1 gm/dL Albumin/Globulin Ratio 0.4 L (1-2) Triglycerides 101 (<150) mg/dL Cholesterol 104 (<200) mg/dL LDL Cholesterol Direct 83 (<100) mg/dL HDL Cholesterol 12.0 L (40-59) mg/dL TSH 3rd Generation 2.057 (0.358-3.74) uIU/mL Blood Type Gel Antibody Screen Crossmatch [place] Results Last 24 Hours: Microbiology 06/24/18 20:05 Urine Culture - Final Urine, Quick Cath (In-Out) NO GROWTH AFTER 2 DAYS 06/25/18 18:17 Stool Occult Blood ([place]) - Final Stool / Feces Med Orders - Current: Current Medications Enoxaparin Sodium (Lovenox) 30 mg SUBCUT DAILY [facility] Last Admin: 06/26/18 11:24 Dose: 30 mg Hydrocortisone Sodium Succinate (Solu-Cortef) 50 mg IVPUSH DAILY [facility] Last Admin: 06/26/18 11:24 Dose: 50 mg Ceftriaxone Sodium 2 gm/ (Sodium Chloride) 100 mls @ 200 mls/hr IV Q24H [facility] Last Admin: 06/26/18 11:24 Dose: 200 mls/hr Sodium Chloride (Normal Saline) 250 mls @ 100 mls/hr IV ASDIRECTED [facility] Last Admin: 06/25/18 23:53 Dose: 100 mls/hr Metoprolol Tartrate (Lopressor) 5 mg IVPUSH Q6H PRN PRN Reason: HR > 100 Pantoprazole Sodium (Protonix) 40 mg PO DAILY@0700 [facility] Last Admin: 06/26/18 06:03 Dose: 40 mg Sodium Chloride (Saline Flush) 10 ml FLUSH ASDIRECTED PRN PRN Reason: Keep Vein Open Last Admin: 06/24/18 18:43 Dose: 10 ml Spironolactone (Aldactone) 50 mg PO BID [facility] Last Admin: 06/26/18 11:23 Dose: 50 mg Discontinued Medications Enoxaparin Sodium (Lovenox) 30 mg SUBCUT ONETIME ONE Stop: 06/25/18 03:01 Last Admin: 06/25/18 03:05 Dose: 30 mg Furosemide (Lasix) 40 mg IVPUSH ONETIME ONE Stop: 06/25/18 18:01 Last Admin: 06/25/18 19:02 Dose: Not Given Furosemide (Lasix) 40 mg IVPUSH ONETIME ONE Stop: 06/25/18 23:01 Last Admin: 06/25/18 23:23 Dose: 40 mg Hydrocortisone Sodium Succinate (Solu-Cortef) 10 mg IVPUSH Q12H [facility] Hydrocortisone Sodium Succinate (Solu-Cortef) 100 mg IVPUSH Q12H [facility] Last Admin: 06/25/18 14:35 Dose: 100 mg Sodium Chloride (Normal Saline) 1,000 mls @ 999 mls/hr IV ONETIME [facility] Last Admin: 06/24/18 18:42 Dose: 999 mls/hr Sodium Chloride (Normal Saline) 1,000 mls @ 999 mls/hr IV ONETIME [facility] Last Admin: 06/24/18 19:48 Dose: 999 mls/hr Lactated Ringer's (Ringers, Lactated) 1,000 mls @ 250 mls/hr IV ASDIRECTED [facility] Last Admin: 06/24/18 21:50 Dose: 250 mls/hr Lactated Ringer's (Ringers, Lactated) 1,000 mls @ 150 mls/hr IV ASDIRECTED [facility] Stop: 06/25/18 11:00 Last Admin: 06/25/18 04:47 Dose: 125 mls/hr Sodium Chloride (Normal Saline) 1,000 mls @ 150 mls/hr IV ASDIRECTED [facility] Last Admin: 06/25/18 10:52 Dose: 150 mls/hr Magnesium Sulfate 4 gm/ Premix 50 mls @ 12.5 mls/hr IV ONETIME ONE Stop: 06/25/18 21:18 Last Admin: 06/25/18 17:58 Dose: 12.5 mls/hr Non-Formulary Medication (Diltiazem Hcl [Cardizem]) 5 mg PO DAILY [facility] Pantoprazole Sodium (Protonix) 40 mg PO DAILY@0700 [facility] Potassium Chloride (Klor-Con M20) 60 meq PO ONETIME ONE Stop: 06/25/18 17:20 Last Admin: 06/25/18 17:51 Dose: 60 meq Prednisone (Prednisone) 5 mg PO DAILY [facility] - Exam Quality Assessment: Supplemental Oxygen, Urine Catheter, DVT Prophylaxis General: Alert, Oriented, Cooperative, No Acute Distress HEENT: Pupils Equal, Pupils Reactive, EOMI Neck: Trachea Midline, No JVD Lungs: Normal Respiratory Effort, Decreased Breath Sounds, Crackles Cardiovascular: Regular Rate, Regular Rhythm GI/Abdominal Exam: Normal Bowel Sounds, Soft, Non-Tender, No Organomegaly, No Distention (Female) Exam: Deferred Back Exam: Normal Inspection Extremities: Normal Inspection, Non-Tender, Normal Capillary Refill Skin: Warm Neurological: No New Focal Deficit Psy/Mental Status: Alert - Problem List & Annotations (1) Hyperbilirubinemia SNOMED Code(s): 29979829 Code(s): E80.6 - OTHER DISORDERS OF BILIRUBIN METABOLISM Status: Acute Current Visit: Yes (2) Acute renal failure SNOMED Code(s): 87320849 Code(s): N17.9 - ACUTE KIDNEY FAILURE, UNSPECIFIED Status: Acute Current Visit: Yes (3) Alteration in self-care ability SNOMED Code(s): 519635251 Code(s): R53.81 - OTHER MALAISE Status: Acute Current Visit: Yes (4) Fall at home SNOMED Code(s): 91944552 Code(s): W19.XXXA - UNSPECIFIED FALL, INITIAL ENCOUNTER; Y92.009 - UNSP PLACE IN UNSP NON-INSTITUT (PRIVATE) RESIDENCE PLACE Status: Acute Current Visit: Yes (5) Urinary tract infection SNOMED Code(s): 37755635 Code(s): N39.0 - URINARY TRACT INFECTION, SITE NOT SPECIFIED Status: Acute Current Visit: Yes - Problem List Review Problem List Initiated/Reviewed/Updated: Yes - My Orders Last 24 Hours: My Active Orders 06/25/18 17:16 Metoprolol Tartrate [Lopressor] 5 mg IVPUSH Q6H PRN 06/25/18 17:19 Transfuse Red Blood Cells [COMM] Routine 06/25/18 17:30 Sodium Chloride 0.9% [Normal Saline] 250 ml IV ASDIRECTED 06/25/18 18:47 Consult to Physician [CONS] Routine 06/25/18 21:00 Spironolactone [Aldactone] 50 mg PO BID 06/26/18 07:00 Pantoprazole [ProTONIX] 40 mg PO DAILY@0700 06/26/18 07:15 HEPATITIS PANEL (4) [REF] Routine 06/26/18 09:00 Notify Provider Consults [RC] ASDIRECTED Enoxaparin [Lovenox] 30 mg SUBCUT DAILY Hydrocortisone Sod Succinate [Solu-CORTEF] 50 mg IVPUSH DAILY 06/26/18 Breakfast Clear Liquid Diet [DIET] 06/27/18 05:00 BASIC METABOLIC PANEL,BMP [CHEM] DAILY CBC WITH AUTO DIFF [HEME] DAILY MG [MAGNESIUM] [CHEM] DAILY 06/28/18 05:00 BASIC METABOLIC PANEL,BMP [CHEM] DAILY CBC WITH AUTO DIFF [HEME] DAILY MG [MAGNESIUM] [CHEM] DAILY - Plan Plan:: Impression: Hyperbilirubinemia History of liver disease, autoimmune by self report History of immunosuppressants, clarify meds AUTI Chronic venous stasis ARF/dehydration; CKD stage 3-4 Failure of self care/self neglect CVA/TIA, doubt CHF Plan: IVF Home meds after clarified Daily labs coy [place]. Abd US, complete Liver panel, TSH, Cortisol Stress steroid Droplet isolation Resp panel Consult PT/OT/CM DVT/GI prophylaxis
[2018-06-26] MEDS: Furosemide 100 MG in Sodium Chloride 0.9% 90 ML IV SCH (16:11)
[2018-06-27] MEDS: Pantoprazole 40 MG Tab.CR PO SCH (06:12)
[2018-06-27 06:56] LABS: HEMOGLOBIN A1C 5.1 % (4.50-6.20)
[2018-06-27] MEDS: Spironolactone 25 MG Tab PO SCH ×2 (09:01→21:30)
[2018-06-27] MEDS: Enoxaparin 30 MG/0.3 ML Syringe SUBCUT SCH (09:02)
[2018-06-27] MEDS: Hydrocortisone Sodium Succinate 100 MG/2 ML SDV IVPUSH SCH (09:03)
[2018-06-27] MEDS ORDERED: Magnesium Oxide 400 MG Tab PO SCH (11:15)
[2018-06-27] MEDS: Magnesium Oxide 400 MG Tab PO SCH ×2 (12:05→21:12)
[2018-06-27] MEDS: cefTRIAXone 2 GM in Sodium Chloride 0.9% 100 ML IV SCH (12:06)
[2018-06-27] MEDS: Furosemide 100 MG in Sodium Chloride 0.9% 90 ML IV SCH (16:53)
[2018-06-27] MEDS ORDERED: Magnesium Sulfate/Water 2 GM in Premix Bag 1 BAG IV ONE (17:16)
--- NOTE | 2018-06-27 17:21 | PCM.PN ---
- General Info Date of Service: 06/27/18 Subjective Update: Discussed GI physician, will attempt to get EMR. Functional Status: Reports: Urinating - Review of Systems General: Reports: Weakness HEENT: Reports: No Symptoms Pulmonary: Reports: No Symptoms Cardiovascular: Reports: No Symptoms Gastrointestinal: Reports: No Symptoms Genitourinary: Reports: No Symptoms Musculoskeletal: Reports: No Symptoms Skin: Reports: No Symptoms Neurological: Reports: No Symptoms Psychiatric: Reports: No Symptoms - Patient Data Vitals - Most Recent: Last Vital Signs Temp 36.7 C 06/27/18 15:08 Pulse 71 06/27/18 15:08 Resp 22 H 06/27/18 15:08 BP 119/74 06/27/18 15:08 Pulse Ox 100 06/27/18 15:08 Weight - Most Recent: 133.447 kg I&O - Last 24 Hours: Intake & Output 06/27/18 06/27/18 06/27/18 06:59 14:59 22:59 Intake Total 347 920 122 Output Total 800 400 Balance -453 520 122 Lab Results Last 24 Hours: Laboratory Results - last 24 hr 06/25/18 06/25/18 06/27/18 Range/Units 03:44 04:45 05:50 WBC 4.26 (3.98-10.04) K/mm3 RBC 2.78 L (3.98-5.22) M/mm3 Hgb 10.2 L (11.2-15.7) gm/L Hct 29.9 L (34.1-44.9) % MCV 107.6 H (79.4-94.8) fl MCH 36.7 H (25.6-32.2) pg MCHC 34.1 (32.2-35.5) g/dl RDW Std Deviation 103.8 H (36.4-46.3) fL Plt Count 114 L (182-369) K/mm3 MPV 9.8 (9.4-12.3) fl Neut % (Auto) 71.4 H (34.0-71.1) % Lymph % (Auto) 15.7 L (19.3-51.7) % [place] % (Auto) 11.5 (4.7-12.5) % Eos % (Auto) 0.5 L (0.7-5.8) Baso % (Auto) 0.0 L (0.1-1.2) % Neut # (Auto) 3.04 (1.56-6.13) K/mm3 Lymph # (Auto) 0.67 L (1.18-3.74) K/mm3 [place] # (Auto) 0.49 H (0.24-0.36) K/mm3 Eos # (Auto) 0.02 L (0.04-0.36) K/mm3 Baso # (Auto) 0.00 L (0.01-0.08) K/mm3 Manual Slide Review Abnormal smear Sodium (136-145) mEq/L Potassium (3.5-5.1) mEq/L Chloride (98-107) mEq/L Carbon Dioxide (21-32) mEq/L Anion Gap (5-15) BUN (7-18) mg/dL Creatinine (0.55-1.02) mg/dL Est Cr Clr Drug Dosing mL/min Estimated GFR (MDRD) (>60) mL/min BUN/Creatinine Ratio (14-18) Glucose (83-115) mg/dL Hemoglobin A1c (4.50-6.20) % Lactic Acid (0.4-2.0) mmol/L Calcium (8.5-10.1) mg/dL Magnesium (1.8-2.4) mg/dl Vitamin B12 (193-986) pg/ml Folate (8.6-58.9) ng/mL Cortisol 13.9 ug/dL Adenovirus (PCR) Not detected (Not Detected) B. pertussis DNA (PCR) Not detected (Not Detected) B.parapertussis DNA PCR Not detected (Not Detected) C. pneumoniae DNA (PCR) Not detected (Not Detected) Coronavirus (PCR) Not detected (Not Detected) Human Metapneumovir PCR Not detected (Not Detected) Influenza A (RT-PCR) Not detected (Not Detected) Influenza B (RT-PCR) Not detected (Not Detected) M. pneumoniae (PCR) Not detected (Not Detected) Parainfluen 1,2,3,4 PCR Not detected (Not Detected) RSV (PCR) Not detected (Not Detected) Entero/Rhino (PCR) Not detected (Not Detected) 06/27/18 06/27/18 06/27/18 Range/Units 05:50 05:50 05:50 WBC (3.98-10.04) K/mm3 RBC (3.98-5.22) M/mm3 Hgb (11.2-15.7) gm/L Hct (34.1-44.9) % MCV (79.4-94.8) fl MCH (25.6-32.2) pg MCHC (32.2-35.5) g/dl RDW Std Deviation (36.4-46.3) fL Plt Count (182-369) K/mm3 MPV (9.4-12.3) fl Neut % (Auto) (34.0-71.1) % Lymph % (Auto) (19.3-51.7) % [place] % (Auto) (4.7-12.5) % Eos % (Auto) (0.7-5.8) Baso % (Auto) (0.1-1.2) % Neut # (Auto) (1.56-6.13) K/mm3 Lymph # (Auto) (1.18-3.74) K/mm3 [place] # (Auto) (0.24-0.36) K/mm3 Eos # (Auto) (0.04-0.36) K/mm3 Baso # (Auto) (0.01-0.08) K/mm3 Manual Slide Review Sodium 138 (136-145) mEq/L Potassium 3.5 (3.5-5.1) mEq/L Chloride 104 (98-107) mEq/L Carbon Dioxide 23 (21-32) mEq/L Anion Gap 14.5 (5-15) BUN 62 H (7-18) mg/dL Creatinine 2.7 H (0.55-1.02) mg/dL Est Cr Clr Drug Dosing 17.20 mL/min Estimated GFR (MDRD) 17 (>60) mL/min BUN/Creatinine Ratio 23.0 H (14-18) Glucose 121 H (83-115) mg/dL Hemoglobin A1c (4.50-6.20) % Lactic Acid 2.0 (0.4-2.0) mmol/L Calcium 7.9 L (8.5-10.1) mg/dL Magnesium 1.7 L (1.8-2.4) mg/dl Vitamin B12 1527 H (193-986) pg/ml Folate 2.4 L (8.6-58.9) ng/mL Cortisol ug/dL Adenovirus (PCR) (Not Detected) B. pertussis DNA (PCR) (Not Detected) B.parapertussis DNA PCR (Not Detected) C. pneumoniae DNA (PCR) (Not Detected) Coronavirus (PCR) (Not Detected) Human Metapneumovir PCR (Not Detected) Influenza A (RT-PCR) (Not Detected) Influenza B (RT-PCR) (Not Detected) M. pneumoniae (PCR) (Not Detected) Parainfluen 1,2,3,4 PCR (Not Detected) RSV (PCR) (Not Detected) Entero/Rhino (PCR) (Not Detected) 06/27/18 Range/Units 05:50 WBC (3.98-10.04) K/mm3 RBC (3.98-5.22) M/mm3 Hgb (11.2-15.7) gm/L Hct (34.1-44.9) % MCV (79.4-94.8) fl MCH (25.6-32.2) pg MCHC (32.2-35.5) g/dl RDW Std Deviation (36.4-46.3) fL Plt Count (182-369) K/mm3 MPV (9.4-12.3) fl Neut % (Auto) (34.0-71.1) % Lymph % (Auto) (19.3-51.7) % [place] % (Auto) (4.7-12.5) % Eos % (Auto) (0.7-5.8) Baso % (Auto) (0.1-1.2) % Neut # (Auto) (1.56-6.13) K/mm3 Lymph # (Auto) (1.18-3.74) K/mm3 [place] # (Auto) (0.24-0.36) K/mm3 Eos # (Auto) (0.04-0.36) K/mm3 Baso # (Auto) (0.01-0.08) K/mm3 Manual Slide Review Sodium (136-145) mEq/L Potassium (3.5-5.1) mEq/L Chloride (98-107) mEq/L Carbon Dioxide (21-32) mEq/L Anion Gap (5-15) BUN (7-18) mg/dL Creatinine (0.55-1.02) mg/dL Est Cr Clr Drug Dosing mL/min Estimated GFR (MDRD) (>60) mL/min BUN/Creatinine Ratio (14-18) Glucose (83-115) mg/dL Hemoglobin A1c 5.10 (4.50-6.20) % Lactic Acid (0.4-2.0) mmol/L Calcium (8.5-10.1) mg/dL Magnesium (1.8-2.4) mg/dl Vitamin B12 (193-986) pg/ml Folate (8.6-58.9) ng/mL Cortisol ug/dL Adenovirus (PCR) (Not Detected) B. pertussis DNA (PCR) (Not Detected) B.parapertussis DNA PCR (Not Detected) C. pneumoniae DNA (PCR) (Not Detected) Coronavirus (PCR) (Not Detected) Human Metapneumovir PCR (Not Detected) Influenza A (RT-PCR) (Not Detected) Influenza B (RT-PCR) (Not Detected) M. pneumoniae (PCR) (Not Detected) Parainfluen 1,2,3,4 PCR (Not Detected) RSV (PCR) (Not Detected) Entero/Rhino (PCR) (Not Detected) Med Orders - Current: Current Medications Enoxaparin Sodium (Lovenox) 30 mg SUBCUT DAILY [facility] Last Admin: 06/27/18 09:02 Dose: 30 mg Hydrocortisone Sodium Succinate (Solu-Cortef) 50 mg IVPUSH DAILY [facility] Last Admin: 06/27/18 09:03 Dose: 50 mg Ceftriaxone Sodium 2 gm/ (Sodium Chloride) 100 mls @ 200 mls/hr IV Q24H [facility] Last Admin: 06/27/18 12:06 Dose: 200 mls/hr Furosemide 100 mg/ Sodium (Chloride) 100 mls @ 4 mls/hr IV TITRATE [facility]; Protocol Last Admin: 06/27/18 16:53 Dose: 4 mls/hr Magnesium Sulfate 2 gm/ Premix 50 mls @ 25 mls/hr IV ONETIME ONE Stop: 06/27/18 19:15 Magnesium Oxide (Magnesium Oxide) 400 mg PO BID [facility] Stop: 06/27/18 21:01 Last Admin: 06/27/18 12:05 Dose: 400 mg Metoprolol Tartrate (Lopressor) 5 mg IVPUSH Q6H PRN PRN Reason: HR > 100 Pantoprazole Sodium (Protonix) 40 mg PO DAILY@0700 [facility] Last Admin: 06/27/18 06:12 Dose: 40 mg Sodium Chloride (Saline Flush) 10 ml FLUSH ASDIRECTED PRN PRN Reason: Keep Vein Open Last Admin: 06/24/18 18:43 Dose: 10 ml Spironolactone (Aldactone) 50 mg PO BID [facility] Last Admin: 06/27/18 09:01 Dose: 50 mg Discontinued Medications Enoxaparin Sodium (Lovenox) 30 mg SUBCUT ONETIME ONE Stop: 06/25/18 03:01 Last Admin: 06/25/18 03:05 Dose: 30 mg Furosemide (Lasix) 40 mg IVPUSH ONETIME ONE Stop: 06/25/18 18:01 Last Admin: 06/25/18 19:02 Dose: Not Given Furosemide (Lasix) 40 mg IVPUSH ONETIME ONE Stop: 06/25/18 23:01 Last Admin: 06/25/18 23:23 Dose: 40 mg Hydrocortisone Sodium Succinate (Solu-Cortef) 10 mg IVPUSH Q12H [facility] Hydrocortisone Sodium Succinate (Solu-Cortef) 100 mg IVPUSH Q12H [facility] Last Admin: 06/25/18 14:35 Dose: 100 mg Sodium Chloride (Normal Saline) 1,000 mls @ 999 mls/hr IV ONETIME [facility] Last Admin: 06/24/18 18:42 Dose: 999 mls/hr Sodium Chloride (Normal Saline) 1,000 mls @ 999 mls/hr IV ONETIME [facility] Last Admin: 06/24/18 19:48 Dose: 999 mls/hr Lactated Ringer's (Ringers, Lactated) 1,000 mls @ 250 mls/hr IV ASDIRECTED [facility] Last Admin: 06/24/18 21:50 Dose: 250 mls/hr Lactated Ringer's (Ringers, Lactated) 1,000 mls @ 150 mls/hr IV ASDIRECTED [facility] Stop: 06/25/18 11:00 Last Admin: 06/25/18 04:47 Dose: 125 mls/hr Sodium Chloride (Normal Saline) 1,000 mls @ 150 mls/hr IV ASDIRECTED [facility] Last Admin: 06/25/18 10:52 Dose: 150 mls/hr Magnesium Sulfate 4 gm/ Premix 50 mls @ 12.5 mls/hr IV ONETIME ONE Stop: 06/25/18 21:18 Last Admin: 06/25/18 17:58 Dose: 12.5 mls/hr Sodium Chloride (Normal Saline) 250 mls @ 100 mls/hr IV ASDIRECTED [facility] Last Admin: 06/25/18 23:53 Dose: 100 mls/hr Non-Formulary Medication (Diltiazem Hcl [Cardizem]) 5 mg PO DAILY [facility] Pantoprazole Sodium (Protonix) 40 mg PO DAILY@0700 [facility] Potassium Chloride (Klor-Con M20) 60 meq PO ONETIME ONE Stop: 06/25/18 17:20 Last Admin: 06/25/18 17:51 Dose: 60 meq Prednisone (Prednisone) 5 mg PO DAILY [facility] - Exam Quality Assessment: DVT Prophylaxis General: Alert, Oriented, Cooperative, No Acute Distress HEENT: Pupils Equal, Pupils Reactive, EOMI Neck: Trachea Midline, No JVD Lungs: Normal Respiratory Effort Cardiovascular: Regular Rate, Regular Rhythm GI/Abdominal Exam: Normal Bowel Sounds, Soft, Non-Tender, No Organomegaly, No Distention (Female) Exam: Deferred Back Exam: Normal Inspection Extremities: Normal Inspection, Non-Tender, Normal Capillary Refill Skin: Warm Neurological: No New Focal Deficit Psy/Mental Status: Alert, Normal Affect, Normal Mood - Problem List & Annotations (1) Hyperbilirubinemia SNOMED Code(s): 98288865 Code(s): E80.6 - OTHER DISORDERS OF BILIRUBIN METABOLISM Status: Acute Current Visit: Yes (2) Acute renal failure SNOMED Code(s): 21120787 Code(s): N17.9 - ACUTE KIDNEY FAILURE, UNSPECIFIED Status: Acute Current Visit: Yes (3) Alteration in self-care ability SNOMED Code(s): 834499372 Code(s): R53.81 - OTHER MALAISE Status: Acute Current Visit: Yes (4) Fall at home SNOMED Code(s): 60448756 Code(s): W19.XXXA - UNSPECIFIED FALL, INITIAL ENCOUNTER; Y92.009 - UNSP PLACE IN UNSP NON-INSTITUT (PRIVATE) RESIDENCE PLACE Status: Acute Current Visit: Yes (5) Urinary tract infection SNOMED Code(s): 65014346 Code(s): N39.0 - URINARY TRACT INFECTION, SITE NOT SPECIFIED Status: Acute Current Visit: Yes - Problem List Review Problem List Initiated/Reviewed/Updated: Yes - My Orders Last 24 Hours: My Active Orders 06/26/18 18:43 Consult to Physical Therapy [PT Evaluation and Treatment] [CONS] Routine 06/26/18 18:44 ALBERT Bandage [Elastic Wrap] [OM.PC] Routine 06/27/18 11:30 Consult to Speech Language Pathology [CLINICAL INFORMATICS STRATEGIST Evaluation and Treatment] [CONS] Routine 06/27/18 17:16 Magnesium Sulfate/Water [Magnesium Sulfate 2 GM in Water 50 ML] 2 gm Premix Bag 1 bag IV ONETIME 06/28/18 05:00 BASIC METABOLIC PANEL,BMP [CHEM] DAILY CBC WITH AUTO DIFF [HEME] DAILY MG [MAGNESIUM] [CHEM] DAILY - Plan Plan:: Impression: Hyperbilirubinemia History of liver disease, autoimmune by self report History of immunosuppressants, clarify meds AUTI Chronic venous stasis ARF/dehydration; CKD stage 3-4 Failure of self care/self neglect CVA/TIA, doubt CHF Plan: IVF Home meds after clarified Daily labs Diurese, place [place]. Abd US, complete Liver panel, TSH, Cortisol Stress steroid Droplet isolation Resp panel Consult PT/OT/CM DVT/GI prophylaxis
[2018-06-28] MEDS: Pantoprazole 40 MG Tab.CR PO SCH (06:27)
[2018-06-28] MEDS: Hydrocortisone Sodium Succinate 100 MG/2 ML SDV IVPUSH SCH (09:00)
[2018-06-28] MEDS: Enoxaparin 30 MG/0.3 ML Syringe SUBCUT SCH (09:00)
[2018-06-28] MEDS: Spironolactone 25 MG Tab PO SCH ×2 (09:01→21:05)
--- NOTE | 2018-06-28 09:21 | PCM.PN ---
- General Info Date of Service: 06/28/18 Admission Dx/Problem (Free Text): Admission Diagnosis/Problem Admission Diagnosis/Problem Fall in home Subjective Update: Follow Up Functional Status: Reports: Pain Controlled, Tolerating Diet, Urinating. Denies : New Symptoms - Review of Systems General: Denies: Fever, Chills HEENT: Reports: No Symptoms Pulmonary: Denies: Shortness of Breath Cardiovascular: Reports: Edema. Denies: Chest Pain, Dyspnea on Exertion, Lightheadedness Gastrointestinal: Denies: Abdominal Pain, Nausea, Vomiting Genitourinary: Reports: No Symptoms Musculoskeletal: Reports: No Symptoms Skin: Reports: Bruising. Denies: Cyanosis, Mottled, Pallor, Diaphoresis Neurological: Reports: Weakness, Gait Disturbance. Denies: Confusion Psychiatric: Denies: Depression, Anxiety, Agitation, Hallucinations Systems Review Comment:: No significant overnight or acute issues. She is more sensible today than yesterday. Also the first time she is able to sit up in a chair. She has no complaints this AM. - Patient Data Vitals - Most Recent: Last Vital Signs Temp 36.2 C 06/28/18 07:36 Pulse 69 06/28/18 07:36 Resp 17 06/28/18 07:36 BP 156/82 H 06/28/18 07:36 Pulse Ox 99 06/28/18 07:36 Weight - Most Recent: 133.628 kg I&O - Last 24 Hours: Intake & Output 06/27/18 06/28/18 06/28/18 22:59 06:59 14:59 Intake Total 902 283 Output Total 525 475 180 Balance 377 -192 -180 Lab Results Last 24 Hours: Laboratory Results - last 24 hr 06/26/18 06/28/18 06/28/18 Range/Units 07:15 06:05 06:05 WBC 3.01 L (3.98-10.04) K/mm3 RBC 2.65 L (3.98-5.22) M/mm3 Hgb 9.5 L (11.2-15.7) gm/L Hct 28.9 L (34.1-44.9) % MCV 109.1 H (79.4-94.8) fl MCH 35.8 H (25.6-32.2) pg MCHC 32.9 (32.2-35.5) g/dl RDW Std Deviation 104.7 H (36.4-46.3) fL Plt Count 86 L (182-369) K/mm3 MPV 10.2 (9.4-12.3) fl Neut % (Auto) 64.7 (34.0-71.1) % Lymph % (Auto) 17.3 L (19.3-51.7) % [place] % (Auto) 15.3 H (4.7-12.5) % Eos % (Auto) 2.0 (0.7-5.8) Baso % (Auto) 0.0 L (0.1-1.2) % Neut # (Auto) 1.95 (1.56-6.13) K/mm3 Lymph # (Auto) 0.52 L (1.18-3.74) K/mm3 [place] # (Auto) 0.46 H (0.24-0.36) K/mm3 Eos # (Auto) 0.06 (0.04-0.36) K/mm3 Baso # (Auto) 0.00 L (0.01-0.08) K/mm3 Sodium 137 (136-145) mEq/L Potassium 3.4 L (3.5-5.1) mEq/L Chloride 104 (98-107) mEq/L Carbon Dioxide 22 (21-32) mEq/L Anion Gap 14.4 (5-15) BUN 64 H (7-18) mg/dL Creatinine 2.6 H (0.55-1.02) mg/dL Est Cr Clr Drug Dosing 17.83 mL/min Estimated GFR (MDRD) 18 (>60) mL/min BUN/Creatinine Ratio 24.6 H (14-18) Glucose 139 H (83-115) mg/dL Calcium 7.8 L (8.5-10.1) mg/dL Magnesium 2.0 (1.8-2.4) mg/dl Hepatitis A IgM Ab Negative (Negative) Hep Bs Antigen Negative (Negative) Hep B Core IgM Ab Negative (Negative) Hepatitis C Antibody 0.1 (0.0-0.9) s/co ratio Med Orders - Current: Current Medications Enoxaparin Sodium (Lovenox) 30 mg SUBCUT DAILY [facility] Last Admin: 06/28/18 09:00 Dose: 30 mg Hydrocortisone Sodium Succinate (Solu-Cortef) 50 mg IVPUSH DAILY [facility] Last Admin: 06/28/18 09:00 Dose: 50 mg Ceftriaxone Sodium 2 gm/ (Sodium Chloride) 100 mls @ 200 mls/hr IV Q24H [facility] Last Admin: 06/27/18 12:06 Dose: 200 mls/hr Furosemide 100 mg/ Sodium (Chloride) 100 mls @ 4 mls/hr IV TITRATE [facility]; Protocol Last Admin: 06/27/18 16:53 Dose: 4 mls/hr Metoprolol Tartrate (Lopressor) 5 mg IVPUSH Q6H PRN PRN Reason: HR > 100 Pantoprazole Sodium (Protonix) 40 mg PO DAILY@0700 [facility] Last Admin: 06/28/18 06:27 Dose: 40 mg Sodium Chloride (Saline Flush) 10 ml FLUSH ASDIRECTED PRN PRN Reason: Keep Vein Open Last Admin: 06/24/18 18:43 Dose: 10 ml Spironolactone (Aldactone) 50 mg PO BID [facility] Last Admin: 06/28/18 09:01 Dose: 50 mg Discontinued Medications Enoxaparin Sodium (Lovenox) 30 mg SUBCUT ONETIME ONE Stop: 06/25/18 03:01 Last Admin: 06/25/18 03:05 Dose: 30 mg Furosemide (Lasix) 40 mg IVPUSH ONETIME ONE Stop: 06/25/18 18:01 Last Admin: 06/25/18 19:02 Dose: Not Given Furosemide (Lasix) 40 mg IVPUSH ONETIME ONE Stop: 06/25/18 23:01 Last Admin: 06/25/18 23:23 Dose: 40 mg Hydrocortisone Sodium Succinate (Solu-Cortef) 10 mg IVPUSH Q12H [facility] Hydrocortisone Sodium Succinate (Solu-Cortef) 100 mg IVPUSH Q12H [facility] Last Admin: 06/25/18 14:35 Dose: 100 mg Sodium Chloride (Normal Saline) 1,000 mls @ 999 mls/hr IV ONETIME [facility] Last Admin: 06/24/18 18:42 Dose: 999 mls/hr Sodium Chloride (Normal Saline) 1,000 mls @ 999 mls/hr IV ONETIME [facility] Last Admin: 06/24/18 19:48 Dose: 999 mls/hr Lactated Ringer's (Ringers, Lactated) 1,000 mls @ 250 mls/hr IV ASDIRECTED [facility] Last Admin: 06/24/18 21:50 Dose: 250 mls/hr Lactated Ringer's (Ringers, Lactated) 1,000 mls @ 150 mls/hr IV ASDIRECTED [facility] Stop: 06/25/18 11:00 Last Admin: 06/25/18 04:47 Dose: 125 mls/hr Sodium Chloride (Normal Saline) 1,000 mls @ 150 mls/hr IV ASDIRECTED [facility] Last Admin: 06/25/18 10:52 Dose: 150 mls/hr Magnesium Sulfate 4 gm/ Premix 50 mls @ 12.5 mls/hr IV ONETIME ONE Stop: 06/25/18 21:18 Last Admin: 06/25/18 17:58 Dose: 12.5 mls/hr Sodium Chloride (Normal Saline) 250 mls @ 100 mls/hr IV ASDIRECTED [facility] Last Admin: 06/25/18 23:53 Dose: 100 mls/hr Magnesium Sulfate 2 gm/ Premix 50 mls @ 25 mls/hr IV ONETIME ONE Stop: 06/27/18 19:15 Last Admin: 06/27/18 18:02 Dose: 25 mls/hr Magnesium Oxide (Magnesium Oxide) 400 mg PO BID [facility] Stop: 06/27/18 21:01 Last Admin: 06/27/18 21:12 Dose: 400 mg Non-Formulary Medication (Diltiazem Hcl [Cardizem]) 5 mg PO DAILY [facility] Pantoprazole Sodium (Protonix) 40 mg PO DAILY@0700 [facility] Potassium Chloride (Klor-Con M20) 60 meq PO ONETIME ONE Stop: 06/25/18 17:20 Last Admin: 06/25/18 17:51 Dose: 60 meq Prednisone (Prednisone) 5 mg PO DAILY [facility] - Exam General: Alert, Oriented, Cooperative, No Acute Distress, Other (Morbidly Obese) HEENT: Pupils Equal, Pupils Reactive, EOMI, Mucous Membr. Moist/[place] Neck: Supple, No JVD, No Thyromegaly, Other (short and thick) Lungs: Normal Respiratory Effort, Decreased Breath Sounds Cardiovascular: Regular Rate, Regular Rhythm GI/Abdominal Exam: Normal Bowel Sounds, Soft, Non-Tender, No Organomegaly, No Distention, No Abnormal Bruit, Other (Obese) (Female) Exam: Deferred Back Exam: Normal Inspection, Decreased Range of Motion Extremities: Normal Range of Motion, Non-Tender, Pedal Edema, Other (B/L LE: wrapped with [place]) Skin: Warm, Dry, Intact Wound/Incisions: Healing Well Neurological: No New Focal Deficit. 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 Harvey Moreno in [place] - Last IgG level [id number] 05/20/2017 obtained form patient's electronic device - Continue HCTZ/Aldactone home dose - Child-Salgado Score is 11, Class C; Life expectancy for 1-3 years Hyperbilirubinemia - 2/2 Liver Cirrhosis - Total Bili is 4.6 - No coagulation studies; will order it - No need for stress dose steroids; d/c and resume home dose oral steroids AUTI - She has no infection - UA is not suggestive of infection - Cx no growth for 2 days - Will d/c Iv Antibiotic Peripheral Edema - 2/2 Severe Hypoalbuminemia and Venous Insufficiency - Albumin of 1.5 - Was on lasix drip for 2 days now; will d/c it - Dietary consult for low protein state Folic Acid Deficiency - 2.4 Low - Oral supplement QHS Gait Instability/Generalized Weakness - 2/2 Morbidly Obesity and Acute Illness - Pending SNF/Rehab placement Resolved: Hypotension - 2/2 Volume Depletion from GI Bleed - Received 2 units of PRBCs S/p Fall - 2/2 HE and Hypotension - PT/OT for deconditioning - SNF for placement S/p GI Bleed - Acute on Chronic - 2/2 Likely Portal HTN and Intestinal Varices - Hgb 7.8; now at 9.5 - Received 2 units of PRBCs - Monitor Chronic: Venous Stasis CKD stage 3-4, no Acute Renal Failure or CKD, GFR remains the same since admission CVA/TIA Anemia of Chronic Disease Thrombocytopenia, Platelet 173-->, 124--> 114--> 86, on Lovenox SubQ; will d/c it Morbid Obesity with BMI of 49.9, Advised LSM Plan: She is clinically much better and not able to sit up in a chair for the first time Routine Daily labs 2D echo A1C level in AM Anticoagulation studies Continue PT/OT treatment DVT/GI prophylaxis: Auto pump/TEDS and PPIs Additional orders as above Recommend SNF/Rehab LOS anticipate> 96 hrs due to slow response to treatment Met up with brother and nieces at bedside with her permission. Updated them about her morning labs, diagnoses and what I thought exactly happened to her, clinical progress, treatment and discharge care plan. They were made aware, access to GI is very difficult and that she not do very well here with her advanced liver disease. Encouraged them to seek second opinion in [facility].
[2018-06-28] MEDS ORDERED: Lactulose Soln 10 GM/15 ML 30 ML UD Cup PO ONE (09:24)
[2018-06-28] MEDS: cefTRIAXone 2 GM in Sodium Chloride 0.9% 100 ML IV SCH (11:04)
[2018-06-28] MEDS: Lactulose Soln 10 GM/15 ML 30 ML UD Cup PO SCH ×2 (13:45→21:05)
[2018-06-28] MEDS ORDERED: Metoprolol Tartrate 5 MG/5 ML SDV IVPUSH PRN (18:00)
[2018-06-28] MEDS ORDERED: hydrALAZINE 20 MG/ML SDV IVPUSH PRN (18:00)
[2018-06-28] MEDS ORDERED: Potassium Chloride 20 MEQ Tab.ER PO ONE (18:46)
[2018-06-28] MEDS: Hydrochlorothiazide 25 MG Tab PO SCH (21:05)
[2018-06-28] MEDS: Folic Acid 1 MG Tab PO SCH (21:05)
[2018-06-29] MEDS: predniSONE 10 MG Tab PO SCH (06:48)
[2018-06-29] MEDS: Pantoprazole 40 MG Tab.CR PO SCH (06:48)
[2018-06-29 07:30] LABS: HEMOGLOBIN A1C 4.7 % (4.50-6.20)
[2018-06-29] MEDS: Lactulose Soln 10 GM/15 ML 30 ML UD Cup PO SCH ×3 (08:49→21:24)
[2018-06-29] MEDS: Hydrochlorothiazide 25 MG Tab PO SCH ×2 (08:49→21:26)
[2018-06-29] MEDS: Spironolactone 25 MG Tab PO SCH ×2 (08:49→21:23)
--- NOTE | 2018-06-29 09:22 | PCM.PN ---
- General Info Date of Service: 06/29/18 Admission Dx/Problem (Free Text): Admission Diagnosis/Problem Admission Diagnosis/Problem Fall in home Subjective Update: Follow Up Functional Status: Reports: Pain Controlled, Tolerating Diet, Urinating, New Symptoms - Review of Systems General: Denies: Fever, Weakness, Fatigue, Malaise, Chills HEENT: Reports: No Symptoms Pulmonary: Denies: Shortness of Breath Cardiovascular: Reports: Edema. Denies: Chest Pain, Dyspnea on Exertion, Lightheadedness Gastrointestinal: Reports: Diarrhea, Flatus. Denies: Abdominal Pain, Decreased Appetite, Nausea, Vomiting Genitourinary: Reports: No Symptoms Musculoskeletal: Reports: No Symptoms Skin: Reports: Bruising, Other (open sore and skin lesions). Denies: Cyanosis, Mottled, Pallor, Diaphoresis Neurological: Reports: Pre-Existing Deficit, Difficulty Walking, Weakness, Gait Disturbance. Denies: Confusion Psychiatric: Denies: Confusion, Agitation Systems Review Comment:: She was up all night due to diarrhea from lactulose. She felt pretty good otherwise. Her K remains low at 3.2 but her Mg level has improved. - Patient Data Vitals - Most Recent: Last Vital Signs Temp 36.8 C 06/29/18 04:37 Pulse 76 06/29/18 04:37 Resp 16 06/29/18 04:37 BP 117/61 06/29/18 04:37 Pulse Ox 98 06/29/18 04:37 Weight - Most Recent: 131.315 kg I&O - Last 24 Hours: Intake & Output 06/28/18 06/29/18 06/29/18 22:59 06:59 14:59 Intake Total 728 400 Output Total 95 Balance 633 400 Lab Results Last 24 Hours: Laboratory Results - last 24 hr 06/25/18 06/28/18 06/29/18 Range/Units 04:45 18:54 06:15 PT 14.4 H (9.5-12.1) SECONDS INR 1.33 Sodium 140 (136-145) mEq/L Potassium 3.2 L (3.5-5.1) mEq/L Chloride 106 (98-107) mEq/L Carbon Dioxide 24 (21-32) mEq/L Anion Gap 13.2 (5-15) BUN 64 H (7-18) mg/dL Creatinine 2.6 H (0.55-1.02) mg/dL Est Cr Clr Drug Dosing 17.83 mL/min Estimated GFR (MDRD) 18 (>60) mL/min BUN/Creatinine Ratio 24.6 H (14-18) Glucose 125 H (83-115) mg/dL Hemoglobin A1c (4.50-6.20) % Calcium 8.1 L (8.5-10.1) mg/dL Magnesium 2.2 (1.8-2.4) mg/dl Total Bilirubin 2.1 H (0.2-1.0) mg/dL AST 45 H (15-37) U/L ALT 24 (14-59) U/L Alkaline Phosphatase 104 (46-116) U/L Total Protein 5.6 L (6.4-8.2) g/dl Albumin 1.6 L (3.4-5.0) g/dl Globulin 4.0 gm/dL Albumin/Globulin Ratio 0.4 L (1-2) Crossmatch See Detail 06/29/18 06/29/18 Range/Units 06:15 06:15 PT 15.5 H (9.5-12.1) SECONDS INR 1.43 Sodium (136-145) mEq/L Potassium (3.5-5.1) mEq/L Chloride (98-107) mEq/L Carbon Dioxide (21-32) mEq/L Anion Gap (5-15) BUN (7-18) mg/dL Creatinine (0.55-1.02) mg/dL Est Cr Clr Drug Dosing mL/min Estimated GFR (MDRD) (>60) mL/min BUN/Creatinine Ratio (14-18) Glucose (83-115) mg/dL Hemoglobin A1c 4.70 (4.50-6.20) % Calcium (8.5-10.1) mg/dL Magnesium (1.8-2.4) mg/dl Total Bilirubin (0.2-1.0) mg/dL AST (15-37) U/L ALT (14-59) U/L Alkaline Phosphatase (46-116) U/L Total Protein (6.4-8.2) g/dl Albumin (3.4-5.0) g/dl Globulin gm/dL Albumin/Globulin Ratio (1-2) Crossmatch Med Orders - Current: Current Medications Folic Acid (Folic Acid) 1 mg PO BEDTIME COUNT INCLUDES [facility] Last Admin: 06/28/18 21:05 Dose: 1 mg Hydralazine HCl (Apresoline) 20 mg IVPUSH Q4H PRN PRN Reason: Hypertension Hydrochlorothiazide (Hydrochlorothiazide) 25 mg PO BID COUNT [facility]CLUD[facility] Last Admin: 06/29/18 08:49 Dose: 25 mg Lactulose (Cephulac) 30 gm PO TID@0700,1400,2100 COUNT [facility]CLUDES [facility] Last Admin: 06/29/18 08:49 Dose: 30 gm Magnesium Sulfate (Pharmacy To Dose - Magnesium Replacement) 1 dose .XX ASDIRECTED PRN PRN Reason: PHARMACY TO WATCH MAG LEVELS Metoprolol Tartrate (Lopressor) 5 mg IVPUSH Q4H PRN PRN Reason: Tachycardia Pantoprazole Sodium (Protonix) 40 mg PO DAILY@0700 [facility] Last Admin: 06/29/18 06:48 Dose: 40 mg Potassium Chloride (Pharmacy To Dose - Potassium Replacement) 1 dose .XX ASDIRECTED PRN PRN Reason: PHARMACY TO WATCH K LEVELS Potassium Chloride (Klor-Con M20) 60 meq PO ONETIME ONE Stop: 06/29/18 10:01 Prednisone (Prednisone) 10 mg PO WITHBREAKFAST COUNT [facility]CLUDES [facility] Last Admin: 06/29/18 06:48 Dose: 10 mg Sodium Chloride (Saline Flush) 10 ml FLUSH ASDIRECTED PRN PRN Reason: Keep Vein Open Last Admin: 06/24/18 18:43 Dose: 10 ml Spironolactone (Aldactone) 50 mg PO BID COUNT [facility] Last Admin: 06/29/18 08:49 Dose: 50 mg Discontinued Medications Enoxaparin Sodium (Lovenox) 30 mg SUBCUT ONETIME ONE Stop: 06/25/18 03:01 Last Admin: 06/25/18 03:05 Dose: 30 mg Enoxaparin Sodium (Lovenox) 30 mg SUBCUT DAILY [facility] Last Admin: 06/28/18 09:00 Dose: 30 mg Furosemide (Lasix) 40 mg IVPUSH ONETIME ONE Stop: 06/25/18 18:01 Last Admin: 06/25/18 19:02 Dose: Not Given Furosemide (Lasix) 40 mg IVPUSH ONETIME ONE Stop: 06/25/18 23:01 Last Admin: 06/25/18 23:23 Dose: 40 mg Hydrocortisone Sodium Succinate (Solu-Cortef) 10 mg IVPUSH Q12H [facility] Hydrocortisone Sodium Succinate (Solu-Cortef) 100 mg IVPUSH Q12H [facility] Last Admin: 06/25/18 14:35 Dose: 100 mg Hydrocortisone Sodium Succinate (Solu-Cortef) 50 mg IVPUSH DAILY [facility] Last Admin: 06/28/18 09:00 Dose: 50 mg Sodium Chloride (Normal Saline) 1,000 mls @ 999 mls/hr IV ONETIME [facility] Last Admin: 06/24/18 18:42 Dose: 999 mls/hr Sodium Chloride (Normal Saline) 1,000 mls @ 999 mls/hr IV ONETIME [facility] Last Admin: 06/24/18 19:48 Dose: 999 mls/hr Lactated Ringer's (Ringers, Lactated) 1,000 mls @ 250 mls/hr IV ASDIRECTED [facility] Last Admin: 06/24/18 21:50 Dose: 250 mls/hr Lactated Ringer's (Ringers, Lactated) 1,000 mls @ 150 mls/hr IV ASDIRECTED [facility] Stop: 06/25/18 11:00 Last Admin: 06/25/18 04:47 Dose: 125 mls/hr Ceftriaxone Sodium 2 gm/ (Sodium Chloride) 100 mls @ 200 mls/hr IV Q24H [facility] Last Admin: 06/28/18 11:04 Dose: 200 mls/hr Sodium Chloride (Normal Saline) 1,000 mls @ 150 mls/hr IV ASDIRECTED [facility] Last Admin: 06/25/18 10:52 Dose: 150 mls/hr Magnesium Sulfate 4 gm/ Premix 50 mls @ 12.5 mls/hr IV ONETIME ONE Stop: 06/25/18 21:18 Last Admin: 06/25/18 17:58 Dose: 12.5 mls/hr Sodium Chloride (Normal Saline) 250 mls @ 100 mls/hr IV ASDIRECTED [facility] Last Admin: 06/25/18 23:53 Dose: 100 mls/hr Furosemide 100 mg/ Sodium (Chloride) 100 mls @ 4 mls/hr IV TITRATE [facility]; Protocol Last Admin: 06/27/18 16:53 Dose: 4 mls/hr Magnesium Sulfate 2 gm/ Premix 50 mls @ 25 mls/hr IV ONETIME ONE Stop: 06/27/18 19:15 Last Admin: 06/27/18 18:02 Dose: 25 mls/hr Lactulose (Cephulac) 20 gm PO ONETIME ONE Stop: 06/28/18 09:25 Last Admin: 06/28/18 11:04 Dose: 20 gm Magnesium Oxide (Magnesium Oxide) 400 mg PO BID COUNT [facility]CLUD[facility] Stop: 06/27/18 21:01 Last Admin: 06/27/18 21:12 Dose: 400 mg Metoprolol Tartrate (Lopressor) 5 mg IVPUSH Q6H PRN PRN Reason: HR > 100 Non-Formulary Medication (Diltiazem Hcl [Cardizem]) 5 mg PO DAILY COUNT [facility]CLUDES [facility] Pantoprazole Sodium (Protonix) 40 mg PO DAILY@0700 COUNT [facility]CLUD[facility] Potassium Chloride (Klor-Con M20) 60 meq PO ONETIME ONE Stop: 06/25/18 17:20 Last Admin: 06/25/18 17:51 Dose: 60 meq Potassium Chloride (Klor-Con M20) 40 meq PO ONETIME ONE Stop: 06/28/18 18:47 Last Admin: 06/28/18 19:18 Dose: 40 meq Prednisone (Prednisone) 5 mg PO DAILY COUNT [facility]CLUD[facility] - Exam General: Alert, Oriented, Cooperative, No Acute Distress, Other (Morbidly Obese) HEENT: Pupils Equal, Pupils Reactive, EOMI, Mucous Membr. Moist/[place] Neck: Supple, Trachea Midline, No JVD, No Thyromegaly, Other (short and thick) Lungs: Normal Respiratory Effort, Decreased Breath Sounds Cardiovascular: Regular Rate, Regular Rhythm GI/Abdominal Exam: Normal Bowel Sounds, Soft, Non-Tender, No Organomegaly, No Distention, No Abnormal Bruit, Other (Obese) (Female) Exam: Deferred Back Exam: Normal Inspection, Decreased Range of Motion Extremities: Normal Range of Motion, Normal Capillary Refill, Pedal Edema, Other Peripheral Pulses: 1+: Dorsalis Pedis (L), Dorsalis Pedis (R) Skin: Warm, Dry, Intact, Rash Neurological: No New Focal Deficit (limited due to body habitus ). No: Normal Gait Psy/Mental Status: Alert, Normal Affect, Normal Mood Physical Findings Comments:: DERMATOLOGY Pt has multiple skin issues upon admission to the unit. She has either skin tears or blisters that have popped and the skin has peeled back to her 1) right lateral knee 0.5 cm x 1 cm. 2) right lateral thigh 5 cm x 1 cm 3) right upper lateral thigh 3 x 4 cm 4) right lower abdominal quadrant has 2 scratches, red in color but not open. 5) RUQ has 3 intact blisters not yet popped liner in shape. 2 cm , 3.25 cm and 1.5 cm. 6) right medial breast 3 cm x 1.25 cm open skin tear/blister and also a 5 cm x 5 cm bruise - purple-red in color 7) left medial knee 1.25 x 2 cm skin tear/blister 8) left lateral hand petechia bruising that is reddish-purple in color. 9) left elbow 1 x 1.25 cm skin tear/blister 10) great toe 11) pt has bruising around her coccyx and an open area to her coccyx area ---> unmeasured. She also has some scrapes to her buttocks area as well. 12) Right eye is bruised all around the eye, and above the eyebrow. 13) has some redness and bruising to her right cheek below the right eye as well. - Problem List Review Problem List Initiated/Reviewed/Updated: Yes - My Orders Last 24 Hours: My Active Orders 06/28/18 14:00 Lactulose [Cephulac] 30 gm PO TID@0700,1400,2100 06/28/18 17:13 Echo Comp wo Cont [US] Routine 06/28/18 17:34 Remove [place] Catheter [Urinary Catheter Removal] [RC] Per Unit Routine 06/28/18 17:47 Consult to Dietary [Consult to Professor Of Religion] [CONS] Routine 06/28/18 17:58 Antiembolic Devices [RC] PER UNIT ROUTINE ALICE Hose [Antiembolic Hose] [OM.PC] Routine 06/28/18 18:00 Metoprolol Tartrate [Lopressor] 5 mg IVPUSH Q4H PRN Pharmacy to Dose - Magnesium R [Pharmacy to Dose - Magnesium Replacement] 1 dose .XX ASDIRECTED PRN Pharmacy to Dose - Potassium R [Pharmacy to Dose - Potassium Replacement] 1 dose .XX ASDIRECTED PRN hydrALAZINE [Apresoline] 20 mg IVPUSH Q4H PRN 06/28/18 21:00 Folic Acid 1 mg PO BEDTIME hydroCHLOROthiazide 25 mg PO BID 06/29/18 07:00 predniSONE 10 mg PO WITHBREAKFAST 06/29/18 10:00 Potassium Chloride [Klor-Con M20] 60 meq PO ONETIME ONE 06/30/18 05:11 CBC WITH AUTO DIFF [HEME] AM CMP [COMPREHENSIVE METABOLIC PN,CMP] [CHEM] AM INR,PT,PROTHROMBIN TIME [COAG] AM MG [MAGNESIUM] [CHEM] AM 07/01/18 05:11 CBC WITH AUTO DIFF [HEME] AM CMP [COMPREHENSIVE METABOLIC PN,CMP] [CHEM] AM INR,PT,PROTHROMBIN TIME [COAG] AM MG [MAGNESIUM] [CHEM] AM 07/02/18 05:11 CMP [COMPREHENSIVE METABOLIC PN,CMP] [CHEM] AM INR,PT,PROTHROMBIN TIME [COAG] AM MG [MAGNESIUM] [CHEM] AM - Plan Plan:: Assessment/Plan: Acute: Liver Cirrhosis - Likely End Stage; still awaiting medical records form her GI physician in [place] - 04/29 Auto-immune Hepatitis - Hep A IgM, Hep Bs AG and Hep B Core IgM Abs, Hep C Abs- all negative - Abdominal US report reads mild-moderate amount of ascites within the abdomen; cirrhotic change within the liver - She was being followed by Dr. Harvey Moreno in [place] - Last IgG level [id number] 05/20/2017 obtained form patient's electronic device - Continue HCTZ/Aldactone home dose - Child-Salgado Score is 11, Class C; Life expectancy for 1-3 years Hyperbilirubinemia - 2/2 Liver Cirrhosis - Total Bili is 4.6-->2.1 - No coagulation studies; will order it - No need for stress dose steroids; d/c and resume home dose oral steroids Peripheral Edema - 2/2 Severe Hypoalbuminemia and Venous Insufficiency - Albumin of 1.5-->1.6 - Was on lasix drip for 2 days now; will d/c it - Dietary consult for low protein state Folic Acid Deficiency - 2.4 Low - Oral supplement QHS Gait Instability/Generalized Weakness - 2/2 Morbidly Obesity and Acute Illness - Pending SNF/Rehab placement Hypokalemia - K 3.4 -->3.2 - 2/2 diuresis - Replete and monitor Resolved: Hypotension - 2/2 Volume Depletion from GI Bleed - Received 2 units of PRBCs S/p Fall - 2/2 HE and Hypotension - PT/OT for deconditioning - SNF for placement S/p GI Bleed - Acute on Chronic - 2/2 Likely Portal HTN and Intestinal Varices - Hgb 7.8; now at 9.5 - Received 2 units of PRBCs - Monitor S/p Hepatic Encephalopathy - 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 - She is currently on oral prednisone for maintenance medication - In the process of getting immuno-suppressant but moved her from [place] - Ammonia not a good marker for HE - Changed Lactulose to 20 mg po BID Chronic: Venous Stasis CKD stage 3-4, no Acute Renal Failure or CKD, GFR remains the same since admission CVA/TIA Anemia of Chronic Disease Thrombocytopenia, Platelet 173-->, 124--> 114--> 86, on Lovenox SubQ; will d/c it Morbid Obesity with BMI of 49.9, Advised LSM Plan: She is clinically much better and not able to sit up in a chair for the first time Routine Daily labs 2D echo today A1C 5.10 INR is 1.33 -->1.4 Continue PT/OT treatment DVT/GI prophylaxis: Auto pump/TEDS and PPIs Additional orders as above Recommend SNF/Rehab LOS > 96 hrs pending SNF/Rehab placement w/ possible discharge in in 1-2 days
[2018-06-29] MEDS ORDERED: Potassium Chloride 20 MEQ Tab.ER PO ONE (10:00)
[2018-06-29] MEDS ORDERED: Potassium Chloride 20 MEQ Tab.ER PO PRN (15:05)
[2018-06-29] MEDS ORDERED: Lactulose Soln 10 GM/15 ML 30 ML UD Cup PO SCH (17:00)
[2018-06-29] MEDS: Folic Acid 1 MG Tab PO SCH (21:26)
[2018-06-30] MEDS: Pantoprazole 40 MG Tab.CR PO SCH (06:15)
[2018-06-30] MEDS: predniSONE 10 MG Tab PO SCH (06:15)
[2018-06-30] MEDS: Hydrochlorothiazide 25 MG Tab PO SCH (09:20)
[2018-06-30] MEDS: Spironolactone 25 MG Tab PO SCH (09:20)
[2018-06-30] MEDS: Lactulose Soln 10 GM/15 ML 30 ML UD Cup PO SCH (09:21)
--- NOTE | 2018-06-30 11:42 | PCM.PN ---
- General Info Date of Service: 06/30/18 Admission Dx/Problem (Free Text): Admission Diagnosis/Problem Admission Diagnosis/Problem Fall in home Subjective Update: Follow Up Functional Status: Reports: Pain Controlled, Tolerating Diet, Ambulating, Urinating. Denies: New Symptoms - Patient Data Vitals - Most Recent: Last Vital Signs Temp 36.4 C 06/30/18 08:33 Pulse 91 06/30/18 08:33 Resp 22 H 06/30/18 08:33 BP 123/67 06/30/18 08:33 Pulse Ox 99 06/30/18 08:33 Weight - Most Recent: 128.866 kg I&O - Last 24 Hours: Intake & Output 06/29/18 06/30/18 06/30/18 22:59 06:59 14:59 Intake Total 360 250 60 Balance 360 250 60 Lab Results Last 24 Hours: Laboratory Results - last 24 hr 06/30/18 06/30/18 06/30/18 Range/Units 06:31 06:31 06:31 WBC 3.71 L (3.98-10.04) K/mm3 RBC 3.01 L (3.98-5.22) M/mm3 Hgb 10.8 L (11.2-15.7) gm/L Hct 33.4 L (34.1-44.9) % MCV 111.0 H (79.4-94.8) fl MCH 35.9 H (25.6-32.2) pg MCHC 32.3 (32.2-35.5) g/dl RDW Std Deviation 100.7 H (36.4-46.3) fL Plt Count 71 L (182-369) K/mm3 MPV 11.2 (9.4-12.3) fl Neut % (Auto) 61.8 (34.0-71.1) % Lymph % (Auto) 16.7 L (19.3-51.7) % Norman % (Auto) 15.6 H (4.7-12.5) % Eos % (Auto) 5.1 (0.7-5.8) Baso % (Auto) 0.0 L (0.1-1.2) % Neut # (Auto) 2.29 (1.56-6.13) K/mm3 Lymph # (Auto) 0.62 L (1.18-3.74) K/mm3 Norman # (Auto) 0.58 H (0.24-0.36) K/mm3 Eos # (Auto) 0.19 (0.04-0.36) K/mm3 Baso # (Auto) 0.00 L (0.01-0.08) K/mm3 Manual Slide Review Abnormal smear PT 15.6 H (9.5-12.1) SECONDS INR 1.44 Sodium 141 (136-145) mEq/L Potassium 3.5 (3.5-5.1) mEq/L Chloride 107 (98-107) mEq/L Carbon Dioxide 26 (21-32) mEq/L Anion Gap 11.5 (5-15) BUN 60 H (7-18) mg/dL Creatinine 2.3 H (0.55-1.02) mg/dL Est Cr Clr Drug Dosing 20.15 mL/min Estimated GFR (MDRD) 21 (>60) mL/min BUN/Creatinine Ratio 26.1 H (14-18) Glucose 108 (83-115) mg/dL Calcium 8.4 L (8.5-10.1) mg/dL Magnesium 2.1 (1.8-2.4) mg/dl Total Bilirubin 2.1 H (0.2-1.0) mg/dL AST 41 H (15-37) U/L ALT 31 (14-59) U/L Alkaline Phosphatase 105 (46-116) U/L Total Protein 5.8 L (6.4-8.2) g/dl Albumin 1.6 L (3.4-5.0) g/dl Globulin 4.2 gm/dL Albumin/Globulin Ratio 0.4 L (1-2) Med Orders - Current: Current Medications Folic Acid (Folic Acid) 1 mg PO BEDTIME COUNTS INCLUDE 234 BEDS AT THE [facility] Last Admin: 06/29/18 21:26 Dose: 1 mg Hydralazine HCl (Apresoline) 20 mg IVPUSH Q4H PRN PRN Reason: Hypertension Hydrochlorothiazide (Hydrochlorothiazide) 25 mg PO BID COUNTS INCLUDE 234 BEDS AT THE [facility] Last Admin: 06/30/18 09:20 Dose: 25 mg Lactulose (Cephulac) 20 gm PO BID@0900,2100 COUNTS INCLUDE 234 BEDS AT THE [facility] Last Admin: 06/30/18 09:21 Dose: 20 gm Magnesium Sulfate (Pharmacy To Dose - Magnesium Replacement) 1 dose .XX ASDIRECTED PRN PRN Reason: PHARMACY TO WATCH MAG LEVELS Metoprolol Tartrate (Lopressor) 5 mg IVPUSH Q4H PRN PRN Reason: Tachycardia Pantoprazole Sodium (Protonix) 40 mg PO DAILY@0700 COUNTS INCLUDE 234 BEDS AT THE [facility] Last Admin: 06/30/18 06:15 Dose: 40 mg Prednisone (Prednisone) 10 mg PO WITHBREAKFAST COUNTS INCLUDE 234 BEDS AT THE [facility] Last Admin: 06/30/18 06:15 Dose: 10 mg Sodium Chloride (Saline Flush) 10 ml FLUSH ASDIRECTED PRN PRN Reason: Keep Vein Open Last Admin: 06/24/18 18:43 Dose: 10 ml Spironolactone (Aldactone) 50 mg PO BID COUNTS INCLUDE 234 BEDS AT THE [facility] Last Admin: 06/30/18 09:20 Dose: 50 mg Discontinued Medications Enoxaparin Sodium (Lovenox) 30 mg SUBCUT ONETIME ONE Stop: 06/25/18 03:01 Last Admin: 06/25/18 03:05 Dose: 30 mg Enoxaparin Sodium (Lovenox) 30 mg SUBCUT DAILY COUNTS INCLUDE 234 BEDS AT THE [facility] Last Admin: 06/28/18 09:00 Dose: 30 mg Furosemide (Lasix) 40 mg IVPUSH ONETIME ONE Stop: 06/25/18 18:01 Last Admin: 06/25/18 19:02 Dose: Not Given Furosemide (Lasix) 40 mg IVPUSH ONETIME ONE Stop: 06/25/18 23:01 Last Admin: 06/25/18 23:23 Dose: 40 mg Hydrocortisone Sodium Succinate (Solu-Cortef) 10 mg IVPUSH Q12H COUNTS INCLUDE 234 BEDS AT THE [facility] Hydrocortisone Sodium Succinate (Solu-Cortef) 100 mg IVPUSH Q12H COUNTS INCLUDE 234 BEDS AT THE [facility] Last Admin: 06/25/18 14:35 Dose: 100 mg Hydrocortisone Sodium Succinate (Solu-Cortef) 50 mg IVPUSH DAILY COUNTS INCLUDE 234 BEDS AT THE [facility] Last Admin: 06/28/18 09:00 Dose: 50 mg Sodium Chloride (Normal Saline) 1,000 mls @ 999 mls/hr IV ONETIME COUNTS INCLUDE 234 BEDS AT THE [facility] Last Admin: 06/24/18 18:42 Dose: 999 mls/hr Sodium Chloride (Normal Saline) 1,000 mls @ 999 mls/hr IV ONETIME COUNTS INCLUDE 234 BEDS AT THE [facility] Last Admin: 06/24/18 19:48 Dose: 999 mls/hr Lactated Ringer's (Ringers, Lactated) 1,000 mls @ 250 mls/hr IV ASDIRECTED TE[place]O Last Admin: 06/24/18 21:50 Dose: 250 mls/hr Lactated Ringer's (Ringers, Lactated) 1,000 mls @ 150 mls/hr IV ASDIRECTED [place] Stop: 06/25/18 11:00 Last Admin: 06/25/18 04:47 Dose: 125 mls/hr Ceftriaxone Sodium 2 gm/ (Sodium Chloride) 100 mls @ 200 mls/hr IV Q24H [facility] Last Admin: 06/28/18 11:04 Dose: 200 mls/hr Sodium Chloride (Normal Saline) 1,000 mls @ 150 mls/hr IV ASDIRECTED TE[place]O Last Admin: 06/25/18 10:52 Dose: 150 mls/hr Magnesium Sulfate 4 gm/ Premix 50 mls @ 12.5 mls/hr IV ONETIME ONE Stop: 06/25/18 21:18 Last Admin: 06/25/18 17:58 Dose: 12.5 mls/hr Sodium Chloride (Normal Saline) 250 mls @ 100 mls/hr IV ASDIRECTED TE[place]O Last Admin: 06/25/18 23:53 Dose: 100 mls/hr Furosemide 100 mg/ Sodium (Chloride) 100 mls @ 4 mls/hr IV TITRATE [facility]; Protocol Last Admin: 06/27/18 16:53 Dose: 4 mls/hr Magnesium Sulfate 2 gm/ Premix 50 mls @ 25 mls/hr IV ONETIME ONE Stop: 06/27/18 19:15 Last Admin: 06/27/18 18:02 Dose: 25 mls/hr Lactulose (Cephulac) 30 gm PO TID@0700,1400,2100 COUNTS INCLUDE 234 BEDS AT THE [facility] Last Admin: 06/29/18 14:46 Dose: 30 gm Lactulose (Cephulac) 20 gm PO ONETIME ONE Stop: 06/28/18 09:25 Last Admin: 06/28/18 11:04 Dose: 20 gm Lactulose (Cephulac) 20 gm PO BID@0700,1700 [place] Magnesium Oxide (Magnesium Oxide) 400 mg PO BID [place] Stop: 06/27/18 21:01 Last Admin: 06/27/18 21:12 Dose: 400 mg Metoprolol Tartrate (Lopressor) 5 mg IVPUSH Q6H PRN PRN Reason: HR > 100 Non-Formulary Medication (Diltiazem Hcl [Cardizem]) 5 mg PO DAILY COUNTS INCLUDE 234 BEDS AT THE [facility] Pantoprazole Sodium (Protonix) 40 mg PO DAILY@0700 COUNTS INCLUDE 234 BEDS AT THE [facility] Potassium Chloride (Klor-Con M20) 60 meq PO ONETIME ONE Stop: 06/25/18 17:20 Last Admin: 06/25/18 17:51 Dose: 60 meq Potassium Chloride (Pharmacy To Dose - Potassium Replacement) 1 dose .XX ASDIRECTED PRN PRN Reason: PHARMACY TO WATCH K LEVELS Potassium Chloride (Klor-Con M20) 40 meq PO ONETIME ONE Stop: 06/28/18 18:47 Last Admin: 06/28/18 19:18 Dose: 40 meq Potassium Chloride (Klor-Con M20) 60 meq PO ONETIME ONE Stop: 06/29/18 10:01 Last Admin: 06/29/18 10:50 Dose: 60 meq Prednisone (Prednisone) 5 mg PO DAILY COUNTS INCLUDE 234 BEDS AT THE [facility] - My Orders Last 24 Hours: My Active Orders 06/29/18 21:00 Lactulose [Cephulac] 20 gm PO BID@0900,2100 07/01/18 05:11 CBC WITH AUTO DIFF [HEME] AM CMP [COMPREHENSIVE METABOLIC PN,CMP] [CHEM] AM INR,PT,PROTHROMBIN TIME [COAG] AM MG [MAGNESIUM] [CHEM] AM 07/02/18 05:11 CMP [COMPREHENSIVE METABOLIC PN,CMP] [CHEM] AM INR,PT,PROTHROMBIN TIME [COAG] AM MG [MAGNESIUM] [CHEM] AM - Plan Plan:: Assessment/Plan: Acute: Liver Cirrhosis - Likely End Stage; still awaiting medical records form her GI physician in [place] - 04/29 Auto-immune Hepatitis - Hep A IgM, Hep Bs AG and Hep B Core IgM Abs, Hep C Abs- all negative - Abdominal US report reads mild-moderate amount of ascites within the abdomen; cirrhotic change within the liver - She was being followed by Dr. Harvey Moreno in [place] - Last IgG level [id number] 05/20/2017 obtained form patient's electronic device - Continue HCTZ/Aldactone home dose - Child-Salgado Score is 11, Class C; Life expectancy for 1-3 years Hyperbilirubinemia - 2/2 Liver Cirrhosis - Total Bili is 4.6-->2.1 - No coagulation studies; will order it - No need for stress dose steroids; d/c and resume home dose oral steroids Peripheral Edema - 2/2 Severe Hypoalbuminemia and Venous Insufficiency - Albumin of 1.5-->1.6 - Was on lasix drip for 2 days now; will d/c it - Dietary consult for low protein state Folic Acid Deficiency - 2.4 Low - Oral supplement QHS Gait Instability/Generalized Weakness - 2/2 Morbidly Obesity and Acute Illness - Pending SNF/Rehab placement Hypokalemia - K 3.4 -->3.2 - 2/2 diuresis - Replete and monitor Resolved: Hypotension - 2/2 Volume Depletion from GI Bleed - Received 2 units of PRBCs S/p Fall - 2/2 HE and Hypotension - PT/OT for deconditioning - SNF for placement S/p GI Bleed - Acute on Chronic - 2/2 Likely Portal HTN and Intestinal Varices - Hgb 7.8; now at 9.5 - Received 2 units of PRBCs - Monitor S/p Hepatic Encephalopathy - 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 - She is currently on oral prednisone for maintenance medication - In the process of getting immuno-suppressant but moved her from [place] - Ammonia not a good marker for HE - Changed Lactulose to 20 mg po BID Chronic: Venous Stasis CKD stage 3-4, no Acute Renal Failure or CKD, GFR remains the same since admission CVA/TIA Anemia of Chronic Disease Thrombocytopenia, Platelet 173-->, 124--> 114--> 86, on Lovenox SubQ; will d/c it Morbid Obesity with BMI of 49.9, Advised LSM Plan: She is clinically much better and not able to sit up in a chair for the first time Routine Daily labs 2D echo today A1C 5.10 INR is 1.33 -->1.4 Continue PT/OT treatment DVT/GI prophylaxis: Auto pump/TEDS and PPIs Additional orders as above Recommend SNF/Rehab LOS > 96 hrs pending SNF/Rehab placement w/ possible discharge in in 1-2 days
--- NOTE | 2018-06-30 13:14 | PCM.DCSUM1 ---
Discharge Summary - Hospital Course Free Text/Narrative:: Patient was primarily admitted due to acute hepatic encephalopathy along with symptomatic hypotension due to GI bleed from intestinal varices related to her underlying advanced liver cirrhosis with abdominal ascites. Her fall was felt to be related to orthostasis with a documented BP of 97/65 mmHg on presentation. She was also found to have a Hgb level of 7.8 grams and therefore she received 2 units of PRBCs to improve her level to 10.4 grams. Her hospital course was uncomplicated but it was felt she had a questionable congestive heart failure. Hence, she was placed on lasix drip for 2 days but achieved little success for diuresis. She also received Lovenox SubQ for DVT prophylaxis but had to be stopped immediately due to decreasing platelet levels. Her stress dose steroid was stopped as there was no further reasons to continue once her blood pressures respond to volume resuscitation. As for her confusion, she improved with lactulose administration. On medically stable, she was then discharged to SNF/Rehab at [facility]. Patient was advised to follow discharge instruction and to follow up with PCP with repeat labs in 1 week. She was further advised to see GI after discharge and most importantly, to come back and seek immediately care should her symptoms persist or get worse. The patient expressed understanding and in agreement with the plans as discussed above. All questions and concerns were answered. 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 Diagnosis: Stroke: No Modified [place] Scale: No Symptoms at All Modified [place] Scale Score: 0 - Discharge Data Discharge Date: 06/30/18 Discharge Disposition: Home, Self-Care 01 Condition: Good - Discharge Diagnosis/Problem(s) (1) Hypotension SNOMED Code(s): 34388971 ICD Code: I95.9 - HYPOTENSION, UNSPECIFIED Status: Resolved Qualifiers: Hypotension type: unspecified hypotension type Qualified Code(s): I95.9 - Hypotension, unspecified (2) GI (gastrointestinal hemorrhage) SNOMED Code(s): 54629055 ICD Code: K92.2 - GASTROINTESTINAL HEMORRHAGE, UNSPECIFIED Status: Resolved Qualifiers: GI bleed type/associated pathology: anorectal hemorrhage Qualified Code(s) : K62.5 - Hemorrhage of anus and rectum (3) Status post fall SNOMED Code(s): 982810523 ICD Code: Z91.81 - HISTORY OF FALLING Status: Resolved (4) Hypokalemia SNOMED Code(s): 01603122 ICD Code: E87.6 - HYPOKALEMIA Status: Resolved (5) Gait instability SNOMED Code(s): 409190491, 021170740 ICD Code: R26.81 - UNSTEADINESS ON FEET Status: Chronic (6) Morbid (severe) obesity due to excess calories SNOMED Code(s): 669147860 ICD Code: E66.01 - MORBID (SEVERE) OBESITY DUE TO EXCESS CALORIES Status: Chronic (7) Folic acid deficiency SNOMED Code(s): 576641137 ICD Code: E53.8 - DEFICIENCY OF OTHER SPECIFIED B GROUP VITAMINS Status: Acute (8) Chronic iron deficiency anemia SNOMED Code(s): 42576418, 870139958 ICD Code: D50.9 - IRON DEFICIENCY ANEMIA, UNSPECIFIED Status: Chronic (9) Liver cirrhosis secondary to MIKE (nonalcoholic steatohepatitis) SNOMED Code(s): 14525088 ICD Code: K75.81 - NONALCOHOLIC STEATOHEPATITIS (MIKE); K74.60 - UNSPECIFIED CIRRHOSIS OF LIVER Status: Chronic (10) Hypomagnesemia SNOMED Code(s): 852567374 ICD Code: E83.42 - HYPOMAGNESEMIA Status: Acute (11) Encephalopathy, hepatic SNOMED Code(s): 01139497 ICD Code: K72.90 - HEPATIC FAILURE, UNSPECIFIED WITHOUT COMA Status: Resolved (12) Hypoalbuminemia due to protein-calorie malnutrition SNOMED Code(s): 924977480, 066765248 ICD Code: E46 - UNSPECIFIED PROTEIN-CALORIE MALNUTRITION Status: Chronic (13) Edema due to hypoalbuminemia SNOMED Code(s): 744095357 ICD Code: R60.9 - EDEMA, UNSPECIFIED; E88.09 - OTH DISORDERS OF PLASMA- PROTEIN METABOLISM, NEC Status: Chronic - Patient Summary/Data Operative Procedure(s) Performed: None Complications: None Consults: Consultations 06/25/18 11:27 OT Evaluation and Treatment [CONS] Routine PT Evaluation and Treatment [CONS] Routine 06/25/18 11:40 Consult to Case Management/Distribution Accounting Clerk [CONS] Routine 06/25/18 18:47 Consult to Physician [CONS] Routine 06/26/18 18:43 Consult to Physical Therapy [PT Evaluation and Treatment] [CONS] Routine 06/27/18 11:30 Consult to Speech Language Pathology [MACHINE INSPECTOR Evaluation and Treatment] [CONS] Routine 06/28/18 17:47 Consult to Dietary [Consult to Lieutenant Firefighter] [CONS] Routine Labs Pending at D/C: None Recommended Follow-up Testing/Procedures: GI after discharge Planned Operative Procedure(s) after DC: None - Patient Instructions Diet: Heart Healthy Diet, Usual Diet as Tolerated, Low Sodium, Fluid Restriction , Weight Loss Diet Fluid Restriction: 3L Activity: As Tolerated Driving: Do Not Drive Showering/Bathing: May Shower Wound/Incision Care: Keep Operative Site/Wound Site Clean and Dry Notify Provider of: Fever, Increased Pain, Swelling and Redness, Drainage, Nausea and/or Vomiting Other/Special Instructions: - Please take all new medications as directed. - Continue all home medications and routine home activities as per PT/OT. - Recommend follow up CBC, CMP and Mg in 1 week through your PCP's office. - Recommend Lifestyle Modications. - Recommend GI follow up appointment after discharge. - Call or follow up with your PCP for any questions or concerns after discharge. - Follow up with your PCP in 1 week with repeat labs as above. - Come back or seek immediate care should your symptoms persist or get worse - Discharge Plan *PRESCRIPTION DRUG MONITORING PROGRAM REVIEWED*: Not Applicable *COPY OF PRESCRIPTION DRUG MONITORING REPORT IN PATIENT IVETH: Not Applicable Prescriptions/Med Rec: Albuterol [Ventolin HFA] 2 puff INH Q4H PRN #1 inhaler PRN Reason: Shortness Of Breath Ascorbic Acid [Vitamin C] 250 mg PO BEDTIME #30 tab.chew Diltiazem HCl [Cardizem] 120 mg PO DAILY #30 tablet Ferrous Sulfate [Iron] 325 mg PO BEDTIME #30 tablet Folic Acid 1 mg PO BEDTIME #5 tablet hydroCHLOROthiazide [Hydrochlorothiazide] 25 mg PO BID #60 tablet Multivitamin [Multivitamins] 1 each PO BEDTIME #30 capsule Omeprazole Magnesium [Prilosec Otc] 20 mg PO DAILY #30 tablet. predniSONE [Prednisone] 5 mg PO DAILY #30 tablet Rifaximin [Xifaxan] 550 mg PO BID #60 tab Spironolactone 50 mg PO BID #60 tablet Home Medications: Home Meds Omeprazole 20 mg PO DAILY 06/24/18 [History] Albuterol [Ventolin HFA] 2 puff INH Q4H PRN #1 inhaler 06/30/18 [Rx] Ascorbic Acid [Vitamin C] 250 mg PO BEDTIME #30 tab.chew 06/30/18 [Rx] Diltiazem HCl [Cardizem] 120 mg PO DAILY #30 tablet 06/30/18 [Rx] Ferrous Sulfate [Iron] 325 mg PO BEDTIME #30 tablet 06/30/18 [Rx] Folic Acid 1 mg PO BEDTIME #5 tablet 06/30/18 [Rx] Multivitamin [Multivitamins] 1 each PO BEDTIME #30 capsule 06/30/18 [Rx] Omeprazole Magnesium [Prilosec Otc] 20 mg PO DAILY #30 tablet. 06/30/18 [Rx] Rifaximin [Xifaxan] 550 mg PO BID #60 tab 06/30/18 [Rx] Spironolactone 50 mg PO BID #60 tablet 06/30/18 [Rx] hydroCHLOROthiazide [Hydrochlorothiazide] 25 mg PO BID #60 tablet 06/30/18 [Rx] predniSONE [Prednisone] 5 mg PO DAILY #30 tablet 06/30/18 [Rx] Patient Handouts: Fall Prevention in the Home, [id number], Jaundice, Adult, Qdkd-uz-Honn, Hepatic Encephalopathy, Hypotension, Olln-iv-Vprl, Hypomagnesemia , Hypokalemia, Cirrhosis, Malnutrition, Gastrointestinal Bleeding, Nkwy-if-Lksv , Iron-Rich Diet, Edema, Ujjt-gv-Rxmy, Obesity, Adult, Zgxi-oq-[id number] Referrals: Rohan Burgess MD [Physician] - 07/07/18 1:00 pm (Please follow-up with your primary are doctor, Dr. Burgess, on TuesdayJuly 07 at 1:00pm. ) - Discharge Summary/Plan Comment DC Time >30 min.: Yes (45 mins) Discharge Summary/Plan Comment: Discharge to [facility] - General Info Date of Service: 06/30/18 Admission Dx/Problem (Free Text: Acute Hepatic Encephalopathy S/p Fall Subjective Update: Follow Up Functional Status: Reports: Pain Controlled, Tolerating Diet, Ambulating, Urinating. Denies: New Symptoms - Review of Systems General: Denies: Fever, Weakness, Fatigue, Malaise, Chills HEENT: Reports: No Symptoms Pulmonary: Denies: Shortness of Breath Cardiovascular: Reports: Edema. Denies: Chest Pain, Dyspnea on Exertion, Lightheadedness Gastrointestinal: Reports: Diarrhea. Denies: Abdominal Pain, Decreased Appetite , Nausea, Vomiting Genitourinary: Reports: No Symptoms Musculoskeletal: Reports: No Symptoms Skin: Reports: Bruising, Other (skin lesions). Denies: Cyanosis, Mottled, Pallor, Diaphoresis Neurological: Reports: Pre-Existing Deficit, Difficulty Walking, Weakness, Gait Disturbance, Other (gait instability). Denies: Confusion Psychiatric: Denies: Depression, Anxiety, Agitation, Hallucinations Systems Review Comment: No significant overnight issues except frequent bathroom breaks due to diarrhea from lactulose. Otherwise she feels good and has no new complaints. her morning labs are fairly unremarkable. - Patient Data Vitals - Most Recent: Last Vital Signs Temp 36.4 C 06/30/18 08:33 Pulse 91 06/30/18 08:33 Resp 22 H 06/30/18 08:33 BP 123/67 06/30/18 08:33 Pulse Ox 99 06/30/18 08:33 Weight - Most Recent: 128.866 kg I&O - Last 24 hours: Intake & Output 06/29/18 06/30/18 06/30/18 22:59 06:59 14:59 Intake Total 360 250 60 Balance 360 250 60 Lab Results - Last 24 hrs: Laboratory Results - last 24 hr 06/30/18 06/30/18 06/30/18 Range/Units 06:31 06:31 06:31 WBC 3.71 L (3.98-10.04) K/mm3 RBC 3.01 L (3.98-5.22) M/mm3 Hgb 10.8 L (11.2-15.7) gm/L Hct 33.4 L (34.1-44.9) % MCV 111.0 H (79.4-94.8) fl MCH 35.9 H (25.6-32.2) pg MCHC 32.3 (32.2-35.5) g/dl RDW Std Deviation 100.7 H (36.4-46.3) fL Plt Count 71 L (182-369) K/mm3 MPV 11.2 (9.4-12.3) fl Neut % (Auto) 61.8 (34.0-71.1) % Lymph % (Auto) 16.7 L (19.3-51.7) % Benzie % (Auto) 15.6 H (4.7-12.5) % Eos % (Auto) 5.1 (0.7-5.8) Baso % (Auto) 0.0 L (0.1-1.2) % Neut # (Auto) 2.29 (1.56-6.13) K/mm3 Lymph # (Auto) 0.62 L (1.18-3.74) K/mm3 Benzie # (Auto) 0.58 H (0.24-0.36) K/mm3 Eos # (Auto) 0.19 (0.04-0.36) K/mm3 Baso # (Auto) 0.00 L (0.01-0.08) K/mm3 Manual Slide Review Abnormal smear PT 15.6 H (9.5-12.1) SECONDS INR 1.44 Sodium 141 (136-145) mEq/L Potassium 3.5 (3.5-5.1) mEq/L Chloride 107 (98-107) mEq/L Carbon Dioxide 26 (21-32) mEq/L Anion Gap 11.5 (5-15) BUN 60 H (7-18) mg/dL Creatinine 2.3 H (0.55-1.02) mg/dL Est Cr Clr Drug Dosing 20.15 mL/min Estimated GFR (MDRD) 21 (>60) mL/min BUN/Creatinine Ratio 26.1 H (14-18) Glucose 108 (83-115) mg/dL Calcium 8.4 L (8.5-10.1) mg/dL Magnesium 2.1 (1.8-2.4) mg/dl Total Bilirubin 2.1 H (0.2-1.0) mg/dL AST 41 H (15-37) U/L ALT 31 (14-59) U/L Alkaline Phosphatase 105 (46-116) U/L Total Protein 5.8 L (6.4-8.2) g/dl Albumin 1.6 L (3.4-5.0) g/dl Globulin 4.2 gm/dL Albumin/Globulin Ratio 0.4 L (1-2) Med Orders - Current: Current Medications Folic Acid (Folic Acid) 1 mg PO BEDTIME [facility] Last Admin: 06/29/18 21:26 Dose: 1 mg Hydralazine HCl (Apresoline) 20 mg IVPUSH Q4H PRN PRN Reason: Hypertension Hydrochlorothiazide (Hydrochlorothiazide) 25 mg PO BID [facility] Last Admin: 06/30/18 09:20 Dose: 25 mg Lactulose (Cephulac) 20 gm PO BID@0900,2100 [facility] Last Admin: 06/30/18 09:21 Dose: 20 gm Magnesium Sulfate (Pharmacy To Dose - Magnesium Replacement) 1 dose .XX ASDIRECTED PRN PRN Reason: PHARMACY TO WATCH MAG LEVELS Metoprolol Tartrate (Lopressor) 5 mg IVPUSH Q4H PRN PRN Reason: Tachycardia Pantoprazole Sodium (Protonix) 40 mg PO DAILY@0700 [facility] Last Admin: 06/30/18 06:15 Dose: 40 mg Prednisone (Prednisone) 10 mg PO WITHBREAKFAST [facility] Last Admin: 06/30/18 06:15 Dose: 10 mg Sodium Chloride (Saline Flush) 10 ml FLUSH ASDIRECTED PRN PRN Reason: Keep Vein Open Last Admin: 06/24/18 18:43 Dose: 10 ml Spironolactone (Aldactone) 50 mg PO BID [facility] Last Admin: 06/30/18 09:20 Dose: 50 mg Discontinued Medications Enoxaparin Sodium (Lovenox) 30 mg SUBCUT ONETIME ONE Stop: 06/25/18 03:01 Last Admin: 06/25/18 03:05 Dose: 30 mg Enoxaparin Sodium (Lovenox) 30 mg SUBCUT DAILY [facility] Last Admin: 06/28/18 09:00 Dose: 30 mg Furosemide (Lasix) 40 mg IVPUSH ONETIME ONE Stop: 06/25/18 18:01 Last Admin: 06/25/18 19:02 Dose: Not Given Furosemide (Lasix) 40 mg IVPUSH ONETIME ONE Stop: 06/25/18 23:01 Last Admin: 06/25/18 23:23 Dose: 40 mg Hydrocortisone Sodium Succinate (Solu-Cortef) 10 mg IVPUSH Q12H [facility] Hydrocortisone Sodium Succinate (Solu-Cortef) 100 mg IVPUSH Q12H [facility] Last Admin: 06/25/18 14:35 Dose: 100 mg Hydrocortisone Sodium Succinate (Solu-Cortef) 50 mg IVPUSH DAILY [facility] Last Admin: 06/28/18 09:00 Dose: 50 mg Sodium Chloride (Normal Saline) 1,000 mls @ 999 mls/hr IV ONETIME [facility] Last Admin: 06/24/18 18:42 Dose: 999 mls/hr Sodium Chloride (Normal Saline) 1,000 mls @ 999 mls/hr IV ONETIME [facility] Last Admin: 06/24/18 19:48 Dose: 999 mls/hr Lactated Ringer's (Ringers, Lactated) 1,000 mls @ 250 mls/hr IV ASDIRECTED [facility] Last Admin: 06/24/18 21:50 Dose: 250 mls/hr Lactated Ringer's (Ringers, Lactated) 1,000 mls @ 150 mls/hr IV ASDIRECTED [facility] Stop: 06/25/18 11:00 Last Admin: 06/25/18 04:47 Dose: 125 mls/hr Ceftriaxone Sodium 2 gm/ (Sodium Chloride) 100 mls @ 200 mls/hr IV Q24H [facility] Last Admin: 06/28/18 11:04 Dose: 200 mls/hr Sodium Chloride (Normal Saline) 1,000 mls @ 150 mls/hr IV ASDIRECTED [facility] Last Admin: 06/25/18 10:52 Dose: 150 mls/hr Magnesium Sulfate 4 gm/ Premix 50 mls @ 12.5 mls/hr IV ONETIME ONE Stop: 06/25/18 21:18 Last Admin: 06/25/18 17:58 Dose: 12.5 mls/hr Sodium Chloride (Normal Saline) 250 mls @ 100 mls/hr IV ASDIRECTED [facility] Last Admin: 06/25/18 23:53 Dose: 100 mls/hr Furosemide 100 mg/ Sodium (Chloride) 100 mls @ 4 mls/hr IV TITRATE [facility]; Protocol Last Admin: 06/27/18 16:53 Dose: 4 mls/hr Magnesium Sulfate 2 gm/ Premix 50 mls @ 25 mls/hr IV ONETIME ONE Stop: 06/27/18 19:15 Last Admin: 06/27/18 18:02 Dose: 25 mls/hr Lactulose (Cephulac) 30 gm PO TID@0700,1400,2100 [facility] Last Admin: 06/29/18 14:46 Dose: 30 gm Lactulose (Cephulac) 20 gm PO ONETIME ONE Stop: 06/28/18 09:25 Last Admin: 06/28/18 11:04 Dose: 20 gm Lactulose (Cephulac) 20 gm PO BID@0700,1700 [facility] Magnesium Oxide (Magnesium Oxide) 400 mg PO BID [facility] Stop: 06/27/18 21:01 Last Admin: 06/27/18 21:12 Dose: 400 mg Metoprolol Tartrate (Lopressor) 5 mg IVPUSH Q6H PRN PRN Reason: HR > 100 Non-Formulary Medication (Diltiazem Hcl [Cardizem]) 5 mg PO DAILY [facility] Pantoprazole Sodium (Protonix) 40 mg PO DAILY@0700 [facility] Potassium Chloride (Klor-Con M20) 60 meq PO ONETIME ONE Stop: 06/25/18 17:20 Last Admin: 06/25/18 17:51 Dose: 60 meq Potassium Chloride (Pharmacy To Dose - Potassium Replacement) 1 dose .XX ASDIRECTED PRN PRN Reason: PHARMACY TO WATCH K LEVELS Potassium Chloride (Klor-Con M20) 40 meq PO ONETIME ONE Stop: 06/28/18 18:47 Last Admin: 06/28/18 19:18 Dose: 40 meq Potassium Chloride (Klor-Con M20) 60 meq PO ONETIME ONE Stop: 06/29/18 10:01 Last Admin: 06/29/18 10:50 Dose: 60 meq Prednisone (Prednisone) 5 mg PO DAILY [facility] - Exam General: Reports: Alert, Oriented, Cooperative, No Acute Distress, Other ( Morbidly Obese) HEENT: Reports: Pupils Equal, Pupils Reactive, EOMI, Mucous Membr. Moist/[place], Other (short and thick). Denies: Scleral Icterus Lungs: Reports: Normal Respiratory Effort, Decreased Breath Sounds Cardiovascular: Reports: Regular Rate, Regular Rhythm GI/Abdominal Exam: Normal Bowel Sounds, Soft, Non-Tender, No Organomegaly, No Distention, No Abnormal Bruit, Other (Obese) (Female) Exam: Deferred Rectal (Female) Exam: Deferred Back Exam: Reports: Normal Inspection, Decreased Range of Motion Extremities: Non-Tender, Pedal Edema, Slow Capillary Refill, Limited Range of Motion Skin: Reports: Warm, Dry, Intact, Rash, Ecchymosis Wound/Incisions: Reports: Healing Well, Dressing Dry and Intact, No Drainage, Erythema Improving Neurological: Reports: No New Focal Deficit (limited due to body habitus but grossly intract). Denies: Normal Gait Psy/Mental Status: Reports: Alert, Normal Affect, Normal Mood Physical Findings Comments:: Other physical findings: Pt has multiple skin issues upon admission to the unit. She has either skin tears or blisters that have popped and the skin has peeled back to her 1) right lateral knee 0.5 cm x 1 cm. 2) right lateral thigh 5 cm x 1 cm 3) right upper lateral thigh 3 x 4 cm 4) right lower abdominal quadrant has 2 scratches, red in color but not open. 5) RUQ has 3 intact blisters not yet popped liner in shape. 2 cm , 3.25 cm and 1.5 cm. 6) right medial breast 3 cm x 1.25 cm open skin tear/blister and also a 5 cm x 5 cm bruise - purple-red in color 7) left medial knee 1.25 x 2 cm skin tear/blister 8) left lateral hand petechia bruising that is reddish-purple in color. 9) left elbow 1 x 1.25 cm skin tear/blister 10) great toe 11) pt has bruising around her coccyx and an open area to her coccyx area ---> unmeasured. She also has some scrapes to her buttocks area as well. 12) Right eye is bruised all around the eye, and above the eyebrow. 13) has some redness and bruising to her right cheek below the right eye as well.
--- NOTE | 2018-07-03 12:14 | PCM.SN ---
- Free Text/Narrative Note: Send correct Cardizem Rx to patient online prescription provider ([facility] ) Cardizem CD 120 mg po Daily
== END 2018-06-30 13:34 | disposition home or self-care (01) | DRG 442 ==
LOC: JD.ED 18:25 → JD.MS 06-25 00:58
PROVIDERS: ADMIT Internal Medicine Cardiovascular Disease; ATTEND Internal Medicine Cardiovascular Disease
PROC: F08Z4ZZ Home Management Treatment (ICD-10-PCS; 2018-06-26)
PROC: 30233N1 Transfusion of Nonautologous Red Blood Cells into Peripheral Vein, Percutaneous Approach (ICD-10-PCS; principal; 2018-06-29)
PROC: F07M6ZZ Therapeutic Exercise Treatment of Musculoskeletal System - Whole Body (ICD-10-PCS; 2018-06-29)
PROC: F07Z5ZZ Bed Mobility Treatment (ICD-10-PCS; 2018-06-29)
PROC: F07M6ZZ Therapeutic Exercise Treatment of Musculoskeletal System - Whole Body (ICD-10-PCS; 2018-06-29)
DX: K72.00 Acute and subacute hepatic failure without coma (principal); K76.6 Portal hypertension; N18.4 Chronic kidney disease, stage 4 (severe); N17.9 Acute kidney failure, unspecified; N39.0 Urinary tract infection, site not specified; I13.0 Hypertensive heart and chronic kidney disease with heart failure and stage 1 through stage 4 chronic kidney disease, or unspecified chronic kidney disease; R18.8 Other ascites; E46 Unspecified protein-calorie malnutrition; W18.30XA Fall on same level, unspecified, initial encounter; K75.4 Autoimmune hepatitis; E88.09 Other disorders of plasma-protein metabolism, not elsewhere classified; I87.2 Venous insufficiency (chronic) (peripheral); E53.8 Deficiency of other specified B group vitamins; E66.01 Morbid (severe) obesity due to excess calories; R53.1 Weakness; E87.6 Hypokalemia; I95.9 Hypotension, unspecified; I86.8 Varicose veins of other specified sites; J45.909 Unspecified asthma, uncomplicated; F32.9 Major depressive disorder, single episode, unspecified; E86.0 Dehydration; I50.9 Heart failure, unspecified; K75.81 Nonalcoholic steatohepatitis (NASH); K74.60 Unspecified cirrhosis of liver; E83.42 Hypomagnesemia; R26.81 Unsteadiness on feet; D50.9 Iron deficiency anemia, unspecified; Z79.899 Other long term (current) drug therapy; Z90.710 Acquired absence of both cervix and uterus; Z90.722 Acquired absence of ovaries, bilateral; Z68.42 Body mass index [BMI] 45.0-49.9, adult; Z90.89 Acquired absence of other organs; Z87.891 Personal history of nicotine dependence; Y92.009 Unspecified place in unspecified non-institutional (private) residence as the place of occurrence of the external cause
CPT/HCPCS: 36415; 36430; 51702; 70450; 70450-26; 71045; 71045-26; 72170; 72170-26; 76700; 76700-26; 80048; 80053; 80061; 80074; 80076; 81001; 82140; 82272; 82533; 82550; 82607; 82746; 83036; 83605; 83735; 84443; 84484; 85007; 85018; 85025; 85027; 85610; 86140; 86738; 86850; 86900; 86901; 86922; 87086; 87486; 87581; 87632; 87798; 87804; 92523-GN; 93005; 93306; 96360; 96361; 97110-GO; 97110-GP; 97162-GP; 97167-GO; 97530-GO; 97530-GP; 97535-GO; 99283; 99285-25; A9270-GY; J0696; J1650; J1720; J1940; J3475; J7030; J7040; J7050; J7120; P9016